=== PATIENT | male | born 1955 | race Caucasian/White ===

== ENCOUNTER 2017-07-15 10:06 | Inpatient (IN) | payer OTHER ==
[~2017-07-15] VITALS: Ht 167.6 cm; Wt 48.5 kg
[~2017-07-15 10:06] MED LIST: BENTYL20 MG PO
--- NOTE | 2017-07-15 10:38 | ED DYSPNEA/ASTHMA COMPLAINT ---
History of Present Illness General Chief Complaint: Dyspnea (COPD, CHF, Other) Stated Complaint: BIBA, SOB Source: patient, family, old records, EMS Exam Limitations: no limitations, poor historian Vital Signs & Intake/Output Vital Signs & Intake/Output Vital Signs Date Time Temp Pulse Resp B/P B/P Pulse O2 O2 Flow FiO2 Mean Ox Delivery Rate 07/15 1030 96 Room Air 07/15 1010 97.5 86 18 132/85 98 Room Air Allergies Coded Allergies: NO KNOWN ALLERGIES (02/03/14) Reconcile Medications Dicyclomine Hydrochloride (Bentyl) 20 MG TAB 1 TAB PO 4 TIMES/DAY PRN abd pain Triage Note: 61 Y/O MALE LA FROM HOME FOR EVAL OF GENERAL SICK CALL. PER EMS, PT WENT TO WORK THIS MORNING BUT WAS SENT HOME DUE TO NOT FEELING WELL; SISTER THAN CALLED EMS TO GET PT AT HOME. EMS REPORTS PT HOME WAS UNKEMPT WITH "MOLD IN REFRIGERTOR". PT ADMITTED TO EMS THAT HE HAS BEEN FEELING SOB FOR A WHILE. +COUGHING WITH "OCCASIONAL GREEN PHLEGM". PT ARRIVES ALERT/ORIENTED, SPEAKING CLEARLY WITH NO DISTRESS NOTED. PT REPORTS EATING/DRINKING "WELL". DENIES PAIN. ADMITS TO RECENT FALL BUT UNABLE TO DESCRIBE DETAILS OF FALL. PT CACHETIC IN APPERANCE WITH RIBS SHOWING. SKIN PALE/COOL. MD ECHEVARRIA AT THE BEDSIDE Triage Nurses Notes Reviewed? yes Onset: Just prior to arrival Duration: day(s):, constant, continues in ED, getting worse Timing: recent history Severity: severe Activities at Onset: rest Prior Episodes/Possible Cause: illness exposure Modifying Factors: Improves With: rest. Worsens With: movement. Associated Symptoms: cough, loss of appetite, weakness HPI: 1 week prior to admission the patient's spouse . He complains of not feeling well with weakness anorexia productive cough of green sputum several days prior to admission while staying at his mother's home. He has had issues with anorexia nausea and vomiting having a recent swallow study that was normal. There's been no fever chills diarrhea abdominal pain chest pain shortness of breath headache dysuria rash bleeding. Past History Travel History Traveled to [place] past 21 day No Medical History Any Pertinent Medical History? 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 No Review of Systems Review of Systems Constitutional: Reports: see HPI, malaise, weakness. EENTM: Reports: no symptoms. Respiratory: Reports: see HPI, cough, sputum production. Cardiovascular: Reports: no symptoms. GI: Reports: see HPI, nausea, vomiting. Genitourinary: Reports: no symptoms. Musculoskeletal: Reports: no symptoms. Skin: Reports: no symptoms. Neurological/Psychological: Reports: no symptoms. Hematologic/Endocrine: Reports: no symptoms. Immunologic/Allergic: Reports: no symptoms. All Other Systems: Reviewed and Negative Physical Exam Physical Exam General Appearance: well developed/nourished, alert, awake, anxious, mild distress, thin (cachectic) Head: atraumatic Eyes: Bilateral: normal appearance, PERRL, EOMI. Ears, Nose, Throat: normal pharynx, dry mucous membranes Neck: normal inspection, supple, full range of motion, no midline tenderness Respiratory: chest non-tender, no respiratory distress, quiet respiration, rhonchi Cardiovascular: regular rate/rhythm, normal peripheral pulses, norml femoral pulses equa Peripheral Pulses: 4+ carotid (R), 4+ carotid (L) Gastrointestinal: normal bowel sounds, soft, non-tender, no organomegaly Extremities: normal inspection, normal capillary refill, normal range of motion, no edema Neurologic/Psych: no motor/sensory deficits, awake, alert, oriented x 3, normal mood/affect, trim carpenter II-XII nml as tested Skin: intact, normal color, warm/dry Lymphatic: no anterior cervical cristobal Core Measures ACS in differential dx? No CVA/TIA Diagnosis No Sepsis Present: No Sepsis Focused Exam Completed? No Progress Differential Diagnosis: bronchitis, CHF, COPD, pneumonia Plan of Care: Orders Procedure Date/time Status CBC WITHOUT DIFFERENTIAL 07/16 599 Active BASIC ELECTROLYTES PLUS BUN&CR 07/16 06 Active Regular Diet 07/15 L Active Add-on Test (ER Only) 07/15 1326 Active Pathway - chart 07/15 1259 Active House Staff 07/15 1259 Active Patient Data 07/15 1229 Active CULTURE,URINE 07/15 1209 Active OXYGEN SETUP (GEN) 07/15 115 Active Saline Lock 07/15 115 Active Admit to inpatient 07/15 1155 Active Vital Signs 07/15 115 Active Activity/Ambulation 07/15 115 Active BLOOD CULTURE 07/15 115 Active Code Status 07/15 115 Active URINALYSIS 07/15 1135 Complete TSH REFLEX 07/15 1033 Complete TROPONIN LEVEL 07/15 1033 Complete MAGNESIUM 07/15 1033 Complete LIPASE 07/15 1033 Complete COMPREHENSIVE METABOLIC PANEL 07/15 1033 Complete CBC WITHOUT DIFFERENTIAL 07/15 1033 Complete Intake & Output 07/15 1018 Active EKG 07/15 1008 Active VTE Mechanical Prophylaxis 07/15 UNK Active Current Medications Sig/Samantha Start time Last Medication Dose Stop Time Status Admin Heparin Sodium 5,000 UNIT Q8 07/15 1400 UNVr (Porcine) Laboratory Tests 07/15/17 1205: Urinalysis HEAVY H, Urine Color YEL, Urine Clarity HAZY H, Urine pH 6.5, Ur Specific [place] 1.015, Urine Protein NEG, Urine Ketones NEG, Urine Nitrite NEG, Urine Bilirubin NEG, Urine Urobilinogen 0.2, Ur Leukocyte Esterase NEG, Ur Microscopic SEDIMENT EXAMINED, Urine WBC 10-15 H, Ur Epithelial Cells FEW, Urine Mucus MOD H, Urine Hemoglobin TRACE-INTACT H, Urine Glucose NEG 07/15/17 1113: Anion Gap 11, Estimated GFR > 60, BUN/Creatinine Ratio 24.3, Glucose 84, Calcium 9.1, Magnesium 2.0, Total Bilirubin 0.7, AST 29, ALT 31, Alkaline Phosphatase 94 , Troponin I < 0.01, Total Protein 8.4 H, Albumin 3.8, Globulin 4.6 H, Albumin /Globulin Ratio 0.8 L, Lipase 217, TSH &T3 &Free T4 Intrp 2.680, CBC w Diff NO MAN DIFF REQ, RBC 5.20, MCV 90.7, MCH 30.1, MCHC 33.2, RDW 15.5 H, MPV 7.4, Gran % 78.3 H, Lymphocytes % 4.7 L, Monocytes % 10.2 H, Eosinophils % 6.6 H, Basophils % 0.2, Absolute Granulocytes 8.6 H, Absolute Lymphocytes 0.5 L, Absolute Monocytes 1.1 H, Absolute Eosinophils 0.7, Absolute Basophils 0 Microbiology 07/15 1250 BLOOD: Blood Culture - RECD 07/15 1209 URINE ROUT: Urine Culture - RECD 07/15 1155 BLOOD: Blood Culture - ORD Diagnostic Imaging: Viewed by Me: Radiology Read. Discussed w/RAD: Radiology Read. CXR Impression: 1. There has been interval increase in the opacification in the upper zones bilaterally with volume loss and elevation of the deirdre bilaterally. These changes appear more severe on the right with right apical pleural thickening. The findings are consistent with worsening sarcoidosis, although underlying consolidation and/or mass cannot be excluded. Initial ED EKG: normal p-waves, normal sinus rhythm, RBBB, no ST T wave changes Prior EKG: changed Rhythm Strip: normal sinus rhythm Departure Departure Time of Disposition: 1100 Disposition: STILL A PATIENT Condition: Stable Clinical Impression Primary Impression: Pneumonia Referrals: Harleen Ny APRN (PCP/Family) Departure Forms: Customer Survey General Discharge Information Admission Note Spoke With: Edilson LANDAVERDE,Sanjay Documentation of Exam: Documentation of any treatments & extenuating circumstances including Concerns Regarding Discharge (functional status, medication knowledge or non-compliance, living conditions, etc.) that warrant an admission rather than observation: Follow cultures IV antibiotics rheumatology evaluation pulmonary evaluation physical therapy nutrition evaluation medication adjustment continuing care discharge planning Critical Care Note Critical Care Note Critical Care Time: non-applicable
[2017-07-15 11:24] LABS: ABSOLUTE BASOPHIL COUNT 0 /CUMM (0.0-0.2); ABSOLUTE EOSINOPHIL COUNT 0.7 /CUMM (0.0-0.7); ABSOLUTE GRANULOCYTE CT 8.6 /CUMM (1.4-6.5); ABSOLUTE LYMPH COUNT 0.5 /CUMM (1.2-3.4); ABSOLUTE MONOCYTE COUNT 1.1 /CUMM (0.10-0.60); BASOPHIL % 0.2 % (0.0-2.0); EOSINOPHIL % 6.6 % (0-5); GRANULOCYTE % 78.3 % (42.2-75.2); HEMATOCRIT 47.2 % (42-52); MEAN CORPUSCULAR HGB 30.1 PG (27.0-31.0); MEAN CORPUSCULAR HGB CONC 33.2 G/DL (33.0-37.0); MEAN CORPUSCULAR VOLUME 90.7 FL (80.0-94.0); MEAN PLATELET VOLUME 7.4 FL (7.4-10.4); PLATELET COUNT 446 /CUMM (130-400); RBC DISTRIBUTION WIDTH 15.5 % (11.5-14.5)
--- NOTE | 2017-07-15 11:36 | RADIOLOGY REPORT ---
EXAMINATION: XR CHEST CLINICAL INFORMATION: Productive cough and weakness. History of sarcoidosis on prior x-ray reports. COMPARISON: CT scan of the chest 12/21/2016. Chest x-rays 06/23/2013 and 12/19/2012. TECHNIQUE: Frontal and lateral views of the chest were obtained. FINDINGS: The lung burgess are hyperexpanded bilaterally. There has been interval increase in opacification in the upper lung zones bilaterally with multiple coalescing opacities and pleural thickening at the right lung apex. There is volume loss in the upper lobes bilaterally with elevation of the deirdre on the left and right. The heart is normal in size. There are no pleural effusions. The study redemonstrates a levoscoliosis in the mid and lower thoracic spine, and there are multilevel degenerative changes in the thoracic spine. IMPRESSION: 1. There has been interval increase in the opacification in the upper zones bilaterally with volume loss and elevation of the deirdre bilaterally. These changes appear more severe on the right with right apical pleural thickening. The findings are consistent with worsening sarcoidosis, although underlying consolidation and/or mass cannot be excluded.
--- NOTE | 2017-07-15 12:58 | History & Physical ---
Ul Marta LANDAVERDE,[facility] 07/15/17 1258: General Information and HPI MD Statement: I have seen and personally examined WERNER LERNER and documented this H&P. The patient is a 61 year old M who presented with a patient stated chief complaint of [weakness and productive cough]. Source of Information: patient Exam Limitations: clinical condition History of Present Illness: 61-year-old male with past medical history significant for lung nodules, ex- smoker, brought in by ambulance from home to emergency department for not feeling well and productive cough. According to the patient, his 1 week ago. For the last 1 week he has not been feeling well. He feels weak and also started experiencing cough which was productive in nature with greenish sputum production. He went to work this morning and was sent back home. As per the report from emergency department, EMS reported that patient's home was unkempt with morbid in the refrigerator. EMS also reported that patient admitted to feeling short of breath along with cough and occasional green phlegm. Review of system positive for significant weight gain in the last 1 year. According to patient's sister who was present during that encounter she mentioned that patient has lost around 40 pounds in the last 1 year. He also has some difficulty while eating. She frequently throws up. He was taking care of his sick in the last 6 months. She a week ago. As per the sister patient's house is really unkempt and there is mold growing everywhere. Review of systems negative for headaches, acute change in vision, acute shortness of breath, nausea, vomiting, abdominal pain, dysuria, or lower extremity edema. 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 Denies: fever. Cardiovascular: Denies: chest pain. Respiratory: Reports: cough, short of breath. GI: Denies: constipation, diarrhea. Genitourinary: Denies: dysuria. Musculoskeletal: Denies: back pain. All Other Systems: Reviewed and Negative Exam & Diagnostic Data Last 24 Hrs of Vital Signs/I&O Vital Signs Date Time Temp Pulse Resp B/P B/P Pulse O2 O2 Flow FiO2 Mean Ox Delivery Rate 07/15 1030 96 Room Air 07/15 1010 97.5 86 18 132/85 98 Room Air Intake & Output 07/15 1600 07/15 0800 07/15 0000 Intake Total 1000 Output Total Balance 1000 Intake, IV 1000 Patient 121 lb Weight Weight Reported by Patient Measurement Method Physical Exam General Appearance Alert, Oriented X3, Cooperative HEENT Atraumatic Neck No JVD Cardiovascular Regular Rate, Normal S1, Normal S2, No Murmurs Lungs Clear to Auscultation Abdomen Normal Bowel Sounds, Soft, No Tenderness Neurological Normal Speech, Normal Tone, Sensation Intact Extremities No Cyanosis, No Edema Vascular Normal Pulses Last 24 Hrs of Labs/Hawk: Laboratory Tests 07/15/17 1205: Urinalysis HEAVY H, Urine Color YEL, Urine Clarity HAZY H, Urine pH 6.5, Ur Specific [place] 1.015, Urine Protein NEG, Urine Ketones NEG, Urine Nitrite NEG, Urine Bilirubin NEG, Urine Urobilinogen 0.2, Ur Leukocyte Esterase NEG, Ur Microscopic SEDIMENT EXAMINED, Urine WBC 10-15 H, Ur Epithelial Cells FEW, Urine Mucus MOD H, Urine Hemoglobin TRACE-INTACT H, Urine Glucose NEG 07/15/17 1113: Anion Gap 11, Estimated GFR > 60, BUN/Creatinine Ratio 24.3, Glucose 84, Calcium 9.1, Magnesium 2.0, Total Bilirubin 0.7, AST 29, ALT 31, Alkaline Phosphatase 94 , Troponin I < 0.01, Total Protein 8.4 H, Albumin 3.8, Globulin 4.6 H, Albumin /Globulin Ratio 0.8 L, Lipase 217, TSH &T3 &Free T4 Intrp 2.680, CBC w Diff NO MAN DIFF REQ, RBC 5.20, MCV 90.7, MCH 30.1, MCHC 33.2, RDW 15.5 H, MPV 7.4, Gran % 78.3 H, Lymphocytes % 4.7 L, Monocytes % 10.2 H, Eosinophils % 6.6 H, Basophils % 0.2, Absolute Granulocytes 8.6 H, Absolute Lymphocytes 0.5 L, Absolute Monocytes 1.1 H, Absolute Eosinophils 0.7, Absolute Basophils 0 Microbiology 07/15 1250 BLOOD: Blood Culture - RECD 07/15 1155 BLOOD: Blood Culture - ORD Diagnostic Data EKG Results Normal sinus rhythm, no ST to T wave changes, CXR Results There has been interval increase in the opacification in the upper zones bilaterally with volume loss and elevation of the deirdre bilaterally. These changes appear more severe on the right with right apical pleural thickening. The findings are consistent with worsening sarcoidosis, although underlying consolidation and/or mass cannot be excluded. Assessment/Plan Assessment: 61-year-old male with past medical history significant for lung nodules, ex- smoker, brought in by ambulance from home to emergency department for not feeling well and productive cough. Vitals in emergency department patient afebrile, no tachycardia on examination, no tachypnea, blood pressure 132/85, oxygen saturation of 96-98% on room air. Labs significant for leukocytosis 11, and mild left shift, platelet count 446, normal hemoglobin and hematocrit, mild hyponatremia, chloride 94, carbon dioxide 32, urine showed 10-50 WBCs Patient was admitted on general medicine so for the management of following problems #1 Dehydration/leukocytosis #2 Malnutrition #3 Pyuria #4 ? Cavitary lung lesions in the past and significant weight loss #5 dysphagia Patient does not have significant evidence of infection. He did have some productive cough recently but denied any fevers or chills. Chest x-ray did not show any overwhelming evidence of pneumonia. He is not requiring any additional oxygen. His examination was significant for some rales. According to patient's sister he has lost around 40 pounds in the last 1 year. 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 He is not eating a lot and throws up most of the time after eating. Modified barium swallow was done on 07/10/2017 that showed Mild pooling of contrast in the valleculae. No aspiration. Speech pathologist assessment issued separately. Due to patient's recent significant weight gain, history of cavitary lesions in the previous CAT scan, and hoarding along with unkempt conditions at home, we would like to rule out TB. Pulmonology consult was placed. Patient was put on airborne precautions. Patient has mild pyuria. The date for urine culture he does not have any symptoms. We'll hold off on antibiotics. Patient is on heparin for DVT prophylaxis Patient is full code Patient is on regular diet As Ranked By This Provider Problem List: 1. Pneumonia 2. Lung nodule, multiple Core Measures/Misc (12/23) Acute Coronary Syndrome ACS Diagnosis: No Congestive Heart Failure Congestive Heart Failure Diagnosis No Cerebrovascular Accident CVA/TIA Diagnosis: No VTE (View Protocol) VTE Risk Factors Acute Medical Illness No Mechanical VTE Prophylaxis d/t N/A MechProphylax Ordered No VTE Pharm Prophylaxis d/t NA PharmProphylax ordered Sepsis (View protocol) Sepsis Present: No Carlos Colby MD 07/16/17 0552: Attending MD Review Statement Attending Statement Attending MD Statement: examined this patient, discuss w/resident/PA/MULTIFOCAL BUTTON GENERATOR, agreed w/resident/PA/MULTIFOCAL BUTTON GENERATOR, reviewed EMR data (avail), reviewed images, amended to note Attending Assessment/Plan: The patient is a 61 yo male with h/o pulmonary nodules who was brought from home to [place] ED via ambulance when he was found by POA in his home with severe weakness, cough productive of green sputum, and dyspnea. His had 1 week prior and he had been living in suboptimal environment with mold noted to be growing in home. He denied any fever, chills, chest pain or abdominal pain. Noted diminished appetite and had had significant weight loss of 50 lbs. CXR showed possible upper lobe opacifications. He was noted to be vomiting after meals. Physical Exam: VS: T 97.5, P 86, R 18, BP 132/84, PO 96% RA HEENT: eyes- PERRLA, EOMI mateus- dry mucosa Neck: no JVD/bruits Chest: slightly diminished breath sounds, clear Cor: RRR nl S1, S2 w/o murm Abd: BS+, soft, NT, - HSM Ext: no edema, pulses 1+ Neuro: CODY, alert, depressed, non-focal exam, gait not tested Labs/Tests- as above Impression/Plan: #Cavitary Pulmonary Lesions- noted on prior CT. Does have some green sputum and productive cough with leukocytosis, however no fever or chills. Possible etiologies include pneumonia. Tuberculosis is in differential here. Does have h/ o pulmonary nodules noted and was followed by pulmonary (Dr. Ambrose). Did receive Ceftriaxone/Zithromax/Medrol in ED. Plan: Admit to general medicine for evaluation. Pulmonary Consult- Dr. Ambrose. Respiratory Isolation with negative pressure room until TB excluded. AFB smears/sputum gram stain & culture, etc. Await pulmonary input prior to further antibiotics. #Weight Loss/Cachexia/Malnutrition- patient with 50 Lb weight loss. Plan: Check nutritional parameters, dietary consult. #Pyuria- no urinary symptoms. Plan: Check urine culture. #Depression- recent of . Patient is not suicidal. Plan: Psych and social service consultations. #Dysphagia- noted as above. Plan: Speech Therapy evaluation for swallow.
--- NOTE | 2017-07-15 18:11 | History & Physical ---
General Information and HPI Source of Information: patient Exam Limitations: clinical condition Allergies/Medications Allergies: Coded Allergies: NO KNOWN ALLERGIES (02/03/14) Home Med list No Known Home Medications Compliance With Home Meds: GOOD Past History Travel History Traveled to [place] past 21 day No Medical History Neurological: NONE EENT: NONE Cardiovascular: NONE Respiratory: LUNG NODULES PER PT Gastrointestinal: NONE Hepatic: NONE Renal: NONE Musculoskeletal: NONE Psychiatric: NONE Endocrine: NONE Blood Disorders: NONE Cancer(s): NONE EM PHYSICIAN/Reproductive: NONE Isolation History: Airborne Surgical History Surgical History: non-contributory Exam & Diagnostic Data Diagnostic Data EKG Results Normal sinus rhythm, no ST to T wave changes, CXR Results There has been interval increase in the opacification in the upper zones bilaterally with volume loss and elevation of the deirdre bilaterally. These changes appear more severe on the right with right apical pleural thickening. The findings are consistent with worsening sarcoidosis, although underlying consolidation and/or mass cannot be excluded.
[2017-07-15 19:56] VITALS: BP 96/60
[2017-07-15 22:28] VITALS: BP 98/60
[2017-07-15 23:57] VITALS: BP 98/60
[2017-07-16 06:52] VITALS: BP 102/64
[2017-07-16 08:27] LABS: ABSOLUTE BASOPHIL COUNT 0 /CUMM (0.0-0.2); ABSOLUTE EOSINOPHIL COUNT 0.1 /CUMM (0.0-0.7); ABSOLUTE GRANULOCYTE CT 9.4 /CUMM (1.4-6.5); ABSOLUTE LYMPH COUNT 1.2 /CUMM (1.2-3.4); ABSOLUTE MONOCYTE COUNT 1.6 /CUMM (0.10-0.60); BASOPHIL % 0.3 % (0.0-2.0); GRANULOCYTE % 76.2 % (42.2-75.2); HEMATOCRIT 42.8 % (42-52); MEAN CORPUSCULAR HGB 30.5 PG (27.0-31.0); MEAN CORPUSCULAR HGB CONC 33.5 G/DL (33.0-37.0); MEAN CORPUSCULAR VOLUME 90.9 FL (80.0-94.0); MEAN PLATELET VOLUME 7.9 FL (7.4-10.4); PLATELET COUNT 441 /CUMM (130-400); RBC DISTRIBUTION WIDTH 15.8 % (11.5-14.5); RED BLOOD CELL CT 4.71 /CUMM (4.70-6.10); WHITE BLOOD CELL COUNT 12.3 /CUMM (4.8-10.8)
--- NOTE | 2017-07-16 08:36 | Cons- Pulmonary ---
General Information and HPI Consulting Request Date of Consult: 07/16/17 Requested By: Philippe Reason for Consult: Abnormal chest x-ray History of Present Illness: Patient is 61-year-old who was initially seen in May for abnormal CAT scan 6 years ago. Barium swallow had been done because of dysphagia which showed wide-open gastroesophageal reflux paraesophageal hernia and poor esophageal motility he's had a chronic cough associated with swallowing both liquids and solid foods well a upper lobe biopsy was done which showed nonnecrotizing granulomas fungal next visit studies were negative normal over the past 6 years she's had persistent cough and was recently CAT scan showed marked progression of previously noted nodules with cystic vibration bronchiectasis and fibrosisthere was no adenopathy continues to have cough associated with swallowing both liquids and solids recent barium swallow continue to show evidence of digital fluid in the valleculae but no aspiration at this time. He was admitted with increasing cough now productive of discolored sputum without hemoptysis. He's had significant weight loss Allergies/Medications Allergies: Coded Allergies: NO KNOWN ALLERGIES (02/03/14) Home Med List: No Known Home Medications Review of Systems Review of Systems Constitutional: Reports: weakness. Denies: chills, fever. Cardiovascular: Denies: chest pain. Respiratory: Reports: cough, short of breath, sputum production. Denies: hemoptysis. GI: Denies: abdominal pain, diarrhea, melena (dysphasia). 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 Home Services at Home: None Smoking Status: Former Smoker Exam & Diagnostic Data Last 24 Hrs of Vital Signs/I&O Vital Signs Date Time Temp Pulse Resp B/P B/P Pulse O2 O2 Flow FiO2 Mean Ox Delivery Rate 07/16 0652 97.8 80 22 102/64 98 Room Air 07/16 0000 Room Air 07/15 2357 93 98/60 07/15 2228 96.7 110 20 98/60 95 Room Air 07/15 1956 97.3 102 18 96/60 95 Room Air 07/15 1821 97.8 84 18 128/80 97 Room Air Room Air 07/15 1700 97.2 80 18 124/80 97 Room Air Room Air 07/15 1355 97.4 92 18 126/83 98 Room Air 07/15 1030 96 Room Air 07/15 1010 97.5 86 18 132/85 98 Room Air Intake & Output 07/16 1600 07/16 0800 04 0000 Intake Total 180 540 Output Total 500 600 Balance -320 -60 Intake, Oral 180 540 Number 1 Bowel Movements Output, Urine 500 600 Patient 107 lb Weight Weight Bed scale Measurement Method Patient appears cachectic room air oxygen saturation normal HEENT exam shows no adenopathy exam of his chest shows occasional crackles there are no wheezes cardiac exam shows regular S1 and S2 without murmurs abdomen is soft nontender there's no edema Last 48 Hrs of Labs/Hawk: Laboratory Tests 07/16/17 0758: Sodium Pending, Potassium Pending, Chloride Pending, Carbon Dioxide Pending, Anion Gap Pending, BUN Pending, Creatinine Pending, BUN/Creatinine Ratio Pending , CBC w Diff Pending, WBC Pending, RBC Pending, Hgb Pending, Hct Pending, MCV Pending, MCH Pending, MCHC Pending, RDW Pending, Plt Count Pending, MPV Pending 07/15/17 1205: Urinalysis HEAVY H, Urine Color YEL, Urine Clarity HAZY H, Urine pH 6.5, Ur Specific [place] 1.015, Urine Protein NEG, Urine Ketones NEG, Urine Nitrite NEG, Urine Bilirubin NEG, Urine Urobilinogen 0.2, Ur Leukocyte Esterase NEG, Ur Microscopic SEDIMENT EXAMINED, Urine WBC 10-15 H, Ur Epithelial Cells FEW, Urine Mucus MOD H, Urine Hemoglobin TRACE-INTACT H, Urine Glucose NEG 07/15/17 1113: Anion Gap 11, Estimated GFR > 60, BUN/Creatinine Ratio 24.3, Glucose 84, Calcium 9.1, Phosphorus 3.8, Magnesium 2.0, Total Bilirubin 0.7, AST 29, ALT 31, Alkaline Phosphatase 94, Troponin I < 0.01, Total Protein 8.4 H, Albumin 3.8, Globulin 4.6 H, Albumin/Globulin Ratio 0.8 L, Lipase 217, Vitamin B12 854, 25- [place] Vitamin D Total Pending, TSH &T3 &Free T4 Intrp 2.680, CBC w Diff NO MAN DIFF REQ, RBC 5.20, MCV 90.7, MCH 30.1, MCHC 33.2, RDW 15.5 H, MPV 7.4, Gran % 78.3 H, Lymphocytes % 4.7 L, Monocytes % 10.2 H, Eosinophils % 6.6 H, Basophils % 0.2, Absolute Granulocytes 8.6 H, Absolute Lymphocytes 0.5 L, Absolute Monocytes 1.1 H, Absolute Eosinophils 0.7, Absolute Basophils 0 Microbiology 07/15 1421 NASOPHARYN: Influenza Virus A & B Rapid Smear - COMP Assessment/Plan Impression/Plan: 61-year-old gentleman who is had a chronically abnormal CAT scan dating back to 2008 who shows progression of fibrosis bronchiectasis and cyst formation a biopsy in 2011 showed evidence of noncaseating granulomas with negative fungal or TB stains. Concern is raised over possible persistent aspiration, chronic hypersensitivity lung disease in view of increased eosinophilia for sarcoid though Kaushik levels and absence of adenopathy make this unusual though this could be burned out sarcoid, with acute symptoms this could represent superinfection with Aspergillus and concern over tuberculosis has been raised because of weight loss Recommendations: GI evaluation because of persistent dysphagia. Obtain QuantiFERON Gold. Sputum C&S for routine fungus and AFB. Repeat noncontrast CT scan of the chest. Repeat angiotensin-converting enzyme Consult Acknowledgment - Thank you for your consult request.
--- NOTE | 2017-07-16 08:55 | PN- Housestaff ---
Suresh Lozano MD,Rene 07/16/17 0854: Subjective Follow-up For: Dehydration/leukocytosis Malnutrition Pyuria ?Cavitary lung lesions in the past and significant weight loss dysphagia Complaints: GERD Subjective: Patient is currently on air-bone precautions secondary to presumed TB. Patient was comfortably lying in the bed. He was complaining of symptoms of heartburn overnight. He did not have an acute episode of chest pain or shortness of breath. Review of Systems Constitutional: Denies: chills, fever. Cardiovascular: Denies: chest pain, palpitations. Respiratory: Denies: cough. Gastrointestinal: Denies: abdominal pain, nausea, vomiting. Genitourinary: Denies: dysuria. Musculoskeletal: Denies: back pain. Objective Last 24 Hrs of Vital Signs/I&O Vital Signs Date Time Temp Pulse Resp B/P B/P Pulse O2 O2 Flow FiO2 Mean Ox Delivery Rate 07/16 0652 97.8 80 22 102/64 98 Room Air 07/16 0000 Room Air 07/15 2357 93 98/60 07/15 2228 96.7 110 20 98/60 95 Room Air 07/15 1956 97.3 102 18 96/60 95 Room Air 07/15 1821 97.8 84 18 128/80 97 Room Air Room Air 07/15 1700 97.2 80 18 124/80 97 Room Air Room Air 07/15 1355 97.4 92 18 126/83 98 Room Air 07/15 1030 96 Room Air 07/15 1010 97.5 86 18 132/85 98 Room Air Intake & Output 07/16 1600 07/16 0800 07/16 0000 Intake Total 180 540 Output Total 500 600 Balance -320 -60 Intake, Oral 180 540 Number 1 Bowel Movements Output, Urine 500 600 Patient 107 lb Weight Weight Bed scale Measurement Method Physical Exam General Appearance: Alert, Oriented X3, Cooperative, No Acute Distress HEENT: Atraumatic Neck: No JVD Cardiovascular: Regular Rate, Normal S1, Normal S2 Lungs: Clear to Auscultation Abdomen: Normal Bowel Sounds, Soft, No Tenderness Neurological: Normal Speech, Normal Tone, Sensation Intact Extremities: No Edema Current Medications: Current Medications Sig/Samantha Start time Last Medication Dose Route Stop Time Status Admin Azithromycin 500 MG ONCE ONE 07/15 1200 DC 07/15 Dextrose/Water 250 ML IV 07/15 1259 1354 Ceftriaxone Sodium 0 .STK-MED ONE 07/15 1228 DC .ROUTE Ceftriaxone Sodium 1,000 MG ONCE ONE 07/15 1200 DC 07/15 IV 07/15 1201 1253 Heparin Sodium 5,000 UNIT Q8 07/15 1400 AC 07/16 (Porcine) SC 0629 Heparin Sodium 0 .STK-MED ONE 07/15 1345 DC (Porcine) .ROUTE Methylprednisolone 0 .STK-MED ONE 07/15 1228 DC .ROUTE Methylprednisolone 125 MG ONCE ONE 07/15 1200 DC 07/15 IV 07/15 1201 1229 Omeprazole 40 MG DAILY AC 07/16 0829 AC PO Sodium Chloride 1,000 ML BOLUS ONE 07/15 1045 DC 07/15 IV 07/15 1144 1120 Last 24 Hrs of Lab/Hawk Results Last 24 Hrs of Labs/Mics: Laboratory Tests 07/16/17 0758: Anion Gap 10, Estimated GFR > 60, BUN/Creatinine Ratio 23.3, CBC w Diff NO MAN DIFF REQ, RBC 4.71, MCV 90.9, MCH 30.5, MCHC 33.5, RDW 15.8 H, MPV 7.9, Gran % 76.2 H, Lymphocytes % 9.4 L, Monocytes % 13.1 H, Eosinophils % 1.0, Basophils % 0.3, Absolute Granulocytes 9.4 H, Absolute Lymphocytes 1.2, Absolute Monocytes 1.6 H, Absolute Eosinophils 0.1, Absolute Basophils 0 07/15/17 1205: Urinalysis HEAVY H, Urine Color YEL, Urine Clarity HAZY H, Urine pH 6.5, Ur Specific [place] 1.015, Urine Protein NEG, Urine Ketones NEG, Urine Nitrite NEG, Urine Bilirubin NEG, Urine Urobilinogen 0.2, Ur Leukocyte Esterase NEG, Ur Microscopic SEDIMENT EXAMINED, Urine WBC 10-15 H, Ur Epithelial Cells FEW, Urine Mucus MOD H, Urine Hemoglobin TRACE-INTACT H, Urine Glucose NEG 07/15/17 1113: Anion Gap 11, Estimated GFR > 60, BUN/Creatinine Ratio 24.3, Glucose 84, Calcium 9.1, Phosphorus 3.8, Magnesium 2.0, Total Bilirubin 0.7, AST 29, ALT 31, Alkaline Phosphatase 94, Troponin I < 0.01, Total Protein 8.4 H, Albumin 3.8, Globulin 4.6 H, Albumin/Globulin Ratio 0.8 L, Lipase 217, Vitamin B12 854, 25- OH Vitamin D Total Pending, TSH &T3 &Free T4 Intrp 2.680, CBC w Diff NO MAN DIFF REQ, RBC 5.20, MCV 90.7, MCH 30.1, MCHC 33.2, RDW 15.5 H, MPV 7.4, Gran % 78.3 H, Lymphocytes % 4.7 L, Monocytes % 10.2 H, Eosinophils % 6.6 H, Basophils % 0.2, Absolute Granulocytes 8.6 H, Absolute Lymphocytes 0.5 L, Absolute Monocytes 1.1 H, Absolute Eosinophils 0.7, Absolute Basophils 0 Microbiology 07/16 0500 LOWER RESP: AFB Culture with PCR Identification - COLB 07/16 050 LOWER RESP: AFB Culture with PCR Identification - COLB 07/16 0500 LOWER RESP: AFB Smear Concentration - COLB 07/15 1421 NASOPHARYN: Influenza Virus A & B Rapid Smear - COMP 07/15 1350 URINE ROUT: Legionella Antigen - COLB 07/15 1350 URINE ROUT: Streptococcus pneumoniae Antigen (M - COLB 07/15 1350 LOWER RESP: Respiratory Culture - COLB 07/15 1350 LOWER RESP: Gram Stain - COLB 07/15 1250 BLOOD: Blood Culture - RECD 07/15 1209 URINE ROUT: Urine Culture - RES 07/15 1155 BLOOD: Blood Culture - CAN Cancelled: SPECIMEN NEVER RECEIVED. REORDER IF NEEDED Lines/Diet/Fluids Fluids/Infusions: none Restraints: none Assessment/Plan Assessment: 61-year-old male with past medical history significant for lung nodules, ex- smoker, brought in by ambulance from home to emergency department for not feeling well and productive cough. Vitals in emergency department patient afebrile, no tachycardia on examination, no tachypnea, blood pressure 132/85, oxygen saturation of 96-98% on room air. Labs significant for leukocytosis 11, and mild left shift, platelet count 446, normal hemoglobin and hematocrit, mild hyponatremia, chloride 94, carbon dioxide 32, urine showed 10-50 WBCs Patient was admitted on general medicine so for the management of following problems #1 Dehydration/leukocytosis #2 Malnutrition #3 Pyuria #4 ? Cavitary lung lesions in the past and significant weight loss #5 dysphagia Patient does not have significant evidence of infection. He did have some productive cough recently but denied any fevers or chills. Chest x-ray did not show any overwhelming evidence of pneumonia. He is not requiring any additional oxygen. His examination was significant for some rales. According to patient's sister he has lost around 40 pounds in the last 1 year. 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 He is not eating a lot and throws up most of the time after eating. Modified barium swallow was done on 07/10/2017 that showed Mild pooling of contrast in the valleculae. No aspiration. Will repeat this region evaluation and consult GI if needed but this workup can be done as an outpatient. Due to patient's recent significant weight LOSS, history of cavitary lesions in the previous CAT scan, and hoarding along with unkempt conditions at home, we would like to rule out TB. Fungal conditions can also be considered. Pulmonology consult was placed. Patient had a biopsy of lung in 2011 that showed noncaseating granulomas with negative fungal or TB stains. Patient was put on airborne precautions. AFB smears were ordered. We'll also obtain QuantiFERON Gold as per pulmonology. Recent x-ray also raise suspicion for sarcoidosis. Will obtain a CAT scan. Pulmonology recommended to obtain CASEY enzyme but in the recent literature utility of CASEY enzyme is questionable secondary to poor sensitivity and specificity. . Patient has mild pyuria. The date for urine culture he does not have any symptoms. We'll hold off on antibiotics. Patient is on SC heparin for DVT prophylaxis Patient is full code Patient is on regular diet Problem List: 1. Pneumonia 2. Lung nodule, multiple Pain Ratin Pain Location: na Pain Goal: Pain 4 or less Pain Plan: Continue current pain medications Tomorrow's Labs & Rationales: CBC to follow leukocytosis DVT/Prophylaxis: pharmacological Carlos Colby MD 07/16/17 1008: Attending MD Review Statement Attending Statement Attending MD Statement: examined this patient, discuss w/resident/PA/PULLING UNIT FLOORHAND, agreed w/resident/PA/PULLING UNIT FLOORHAND, reviewed EMR data (avail), discussed with nursing, discussed with case mgmt, reviewed images, amended to note Attending Assessment/Plan: The patient was seen and discussed with the resident. Appreciate Pulmonary evaluation. Await sputums, Quantiferon Gold, etc. Speech evaluation, PT, nutrition consult, psych consult regarding depression and social group worker consult. Patient continues to c/o weakness. Appears less depressed than yesterday.
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
[2017-07-16 14:23] VITALS: BP 100/60
--- NOTE | 2017-07-16 17:48 | Discharge Summary ---
Visit Information Visit Dates Admission Date: 07/15/17 Discharge Date: 07/19/17 Hospital Course Course Attending Physician: Carlos Colby MD Primary Care Physician: Harleen Ny APRN Consulting Request: 1 Consulting Specialty: Pulmonary Disease Consulting Request: 2 Consulting Specialty: Gastroenterology Consulting Request: 3 Consulting Specialty: Psychiatry Hospital Course: 61-year-old male with past medical history significant for lung nodules, ex- smoker, history of dysphagia, history of lung biopsy in 2011 showing evidence of necrotizing granulomas with negative fungal and TB stains, brought in by ambulance from home to emergency department for not feeling well and productive cough. EMS reported that patient's home was unkempt with significant mold around. Patient's sister also contributing to the history and mentioned that he has lost around 40 pounds in the last 1 year. He was taking care of his sick for the last 6 months she a week ago before this hospital admission. Vitals in emergency department patient afebrile, no tachycardia on examination, no tachypnea, blood pressure 132/85, oxygen saturation of 96-98% on room air. Labs significant for leukocytosis 11, and mild left shift, platelet count 446, normal hemoglobin and hematocrit, mild hyponatremia, chloride 94, carbon dioxide 32, urine showed 10-50 WBCs Patient was admitted on general medicine so for the management of following problems Leukocytosis/pyuria Patient did not have significant evidence of infection on examination. He did have some productive cough but did not develop high-grade fever or chills. Chest x-ray did not show any overwhelming evidence of pneumonia on admission. He was not requiring any additional oxygen. He was given antibiotics in emergency department but we held off on further antibiotics. Patient did have some pyuria but did not complain of dysuria and there was no growth from urine culture. Dysphagia/malnutrition According to patient's sister he has lost around 40 pounds in the last 1 year. He was not eating a lot and throwing up most of the time after eating as per the history. Modified barium swallow was done on 07/10/2017 that showed mild pooling of contrast in the valleculae. No aspiration. Patient was started on PPI secondary to his GERD-like symptoms. Patient needs significant workup including EGD to rule out any obstructive lesion or malignancy especially in the setting of significant weight loss. Nutrition consult was placed and he was started on Ensure supplements. He was also seen by GI and it was recommended thaty he has OP Esophagram, with both liquid barium as well as barium soaked bread, as well as esophageal motility study. ? Cavitary lung lesions in the past and significant weight loss Due to patient's recent significant weight loss, history of cavitary lesions in the previous CAT scan, and hoarding along with unkempt conditions at home, we pursued workup for TB. Pulmonology consult was placed. Patient had a biopsy of lung in 2011 that showed noncaseating granulomas with negative fungal or TB stains. Patient was put on airborne precautions. AFB smears were ordered. QuantiFERON Gold ordered as per pulmonologywhich were negative. Recent x-ray on admission also raised suspicion for sarcoidosis. CAT scan was ordered that showed progressive fibrosis, cavitation, bronchiectasis, groundglass opacities, bronchocentric nodules, in both lungs. Calcified lymph nodes in the mediastinum. Pulmonology recommended to obtain CASEY enzyme but in the recent literature utility of CASEY enzyme is questionable secondary to poor sensitivity and specificity. [facility] CASEY enzyme is still pending. We also sent for galactomannan assay and B- glucan, resultys of which are stil lpending. He will follow up [facility] his machinist outside Dr. Ambrose within a week of discharge. Depression and decrased appetite Patient was started on Mirtazepine 7.5mg at bedtime. 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 Patient was on SC heparin for DVT prophylaxis Patient was full code Patient was on regular diet Complications: None Allergies: Coded Allergies: NO KNOWN ALLERGIES (02/03/14) Significant Procedures: SERVICE DATE: 07/15/17 EXAM TYPE: RAD - XRY-CHEST XRAY, TWO VIEWS FINDINGS: The lung burgess are hyperexpanded bilaterally. There has been interval increase in opacification in the upper lung zones bilaterally with multiple coalescing opacities and pleural thickening at the right lung apex. There is volume loss in the upper lobes bilaterally with elevation of the deirdre on the left and right. The heart is normal in size. There are no pleural effusions. The study redemonstrates a levoscoliosis in the mid and lower thoracic spine, and there are multilevel degenerative changes in the thoracic spine. IMPRESSION: 1. There has been interval increase in the opacification in the upper zones bilaterally with volume loss and elevation of the deirdre bilaterally. These changes appear more severe on the right with right apical pleural thickening. The findings are consistent with worsening sarcoidosis, although underlying consolidation and/or mass cannot be excluded. SERVICE DATE: 07/16/17- EXAM TYPE: CAT - CT CHEST WO IV CONTRAST FINDINGS: TELESALES SPECIALIST: Diffuse fibrotic lung disease. LUNGS: The confluent irregular thick-walled cavities in the apical segment of the right upper lobe persist and have thicker arguello. There is adjacent bronchiectasis and retraction of the hilum. There is increasing peripheral consolidation, fibrosis, and bronchiectasis involving the anterior segment of the right upper lobe. There is increasing consolidation and bronchiectasis with enlarging cavitation involving the superior segment of the left lower lobe. Widespread groundglass opacities persist throughout both lungs in a bronchocentric pattern. There is no significant improvement. The fibrosis and nodules along fissures are consistent with sarcoidosis. Conglomerate areas of irregular spiculated fibrosis is seen in both lower lobes. These have not changed significantly in size. MEDIASTINUM: The small mediastinal, pretracheal, and perihilar lymph nodes show calcification and granulomatous reaction. PLEURA: Pleural thickening is quite advanced in the right apex. AXILLA: No lymphadenopathy. The patient has become quite cachectic. UPPER ABDOMEN: Oral contrast is seen in the colon. No bulk adenopathy in the abdomen as visualized. OSSEOUS STRUCTURES: Unremarkable. IMPRESSION: Progressive fibrosis, cavitation, bronchiectasis, groundglass opacities, bronchocentric nodules, in both lungs. Calcified lymph nodes in the mediastinum. 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 Disposition Summary Disposition Principal Diagnosis: Dehydration/leukocytosis Dysphagia Depression ? Cavitary lung lesions in the past and significant weight loss Dysphagia Moderate calorie malnutrition Additional Diagnosis: History of lung nodules Discharge Disposition: SNF Discharge Instructions General Discharge Information Code Status: Full Code Patient's Diet: Regular diet Patient's Activity: As tolerated Follow-Up Instructions/Appts: Follow-up with PCP in a week after discharge Follow-up with freelance director in a week after discharge for OP barium studies and endoscopy Follow-up with machinist outside in a week after discharge Medications at Discharge Discharge Medications: Start taking the following new medications: Tamsulosin HCl (Flomax) 0.4 MG CAP.ER.24H 0.4 Milligram ORAL DAILY Qty = 60 No Refills Instructions: . Comments: LAST TAKEN: 07/19/17 @ 9 AM Codeine Phosphate/Guaifenesi (Guaifenesin AC Cough Syrup) 10 MG-100 MG/5 ML LIQUID 10 Milliliters ORAL EVERY SIX HOURS NEEDED as needed for COUGH Qty = 2 No Refills Instructions: . Comments: LAST TAKEN: 07/19/17 @ 12 PM Mirtazapine (Mirtazapine) 7.5 MG TABLET 7.5 Milligram ORAL AT BEDTIME Qty = 120 No Refills Instructions: . Comments: LAST TAKEN: 07/18/17 @ 9 PM Omeprazole (Omeprazole) 20 MG CAPSULE.DR 40 Milligram ORAL DAILY BEFORE BREAKFAST Qty = 30 No Refills Instructions: . Comments: LAST TAKEN: 07/19/17 @ 6 AM Cholecalciferol (Vitamin D3) 1,000 UNIT TABLET 1,000 International Unit ORAL DAILY Qty = 90 No Refills Instructions: . Comments: LAST TAKEN: 07/19/17 @ 10 AM Melatonin (Melatonin) 5 MG TABLET 5 Milligram ORAL AT BEDTIME as needed for INSOMNIA Qty = 90 No Refills Instructions: . Comments: LAST TAKEN: 07/18/17 @ 9 PM Copies To: Arnol LANDAVERDE,Joshua Monge; Harleen Ny APRN; Sylvester LANDAVERDE,Herbert Villa Attending MD Review Statement Documenting Attending: Carlos Colby MD Other Findings: The patient was seen and agree with the plan of care upon discharge.
[2017-07-16] MEDS ORDERED: VITAMIN D31000 UNI2 PO (18:11)
[2017-07-16] MEDS ORDERED: OMEPRAZOLE20 M2 PO (18:11)
[2017-07-16 22:08] VITALS: BP 118/60
--- NOTE | 2017-07-16 23:01 | CT SCAN REPORT ---
EXAMINATION: CT CHEST WITHOUT CONTRAST CLINICAL INFORMATION: Presumptive diagnosis: Cavitary lesion in the lung. Question tuberculosis. Weight loss and productive cough. Per chart: This patient has been followed since 04/13/2011. CT of the chest at that time showed characteristic nodules consistent with sarcoidosis. The hilar adenopathy and mediastinal adenopathy was not a major feature at that time. COMPARISON: CT the chest on 04/13/2011, CT the chest on 12/21/2016. TECHNIQUE: Multidetector volumetric CT imaging of the chest was done. Axial MIP volume rendering provided. Sagittal and coronal reformatted images were obtained. DLP: 144 mGy-cm FINDINGS: SENIOR MERCHANDISER: Diffuse fibrotic lung disease. LUNGS: The confluent irregular thick-walled cavities in the apical segment of the right upper lobe persist and have thicker arguello. There is adjacent bronchiectasis and retraction of the hilum. There is increasing peripheral consolidation, fibrosis, and bronchiectasis involving the anterior segment of the right upper lobe. There is increasing consolidation and bronchiectasis with enlarging cavitation involving the superior segment of the left lower lobe. Widespread groundglass opacities persist throughout both lungs in a bronchocentric pattern. There is no significant improvement. The fibrosis and nodules along fissures are consistent with sarcoidosis. Conglomerate areas of irregular spiculated fibrosis is seen in both lower lobes. These have not changed significantly in size. MEDIASTINUM: The small mediastinal, pretracheal, and perihilar lymph nodes show calcification and granulomatous reaction. PLEURA: Pleural thickening is quite advanced in the right apex. AXILLA: No lymphadenopathy. The patient has become quite cachectic. UPPER ABDOMEN: Oral contrast is seen in the colon. No bulk adenopathy in the abdomen as visualized. OSSEOUS STRUCTURES: Unremarkable. IMPRESSION: Progressive fibrosis, cavitation, bronchiectasis, groundglass opacities, bronchocentric nodules, in both lungs. Calcified lymph nodes in the mediastinum. 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
[2017-07-17 06:53] VITALS: BP 114/70
--- NOTE | 2017-07-17 07:23 | PN- Housestaff ---
Ellen Zhou 07/17/17 0723: Subjective Follow-up For: Dehydration/leukocytosis Malnutrition Pyuria ?Cavitary lung lesions in the past and significant weight loss dysphagia Complaints: no complaints Subjective: Patient seen and exmained at bedside. He offers no complaints. He is on airborne precautions. The sputum samples were not sent eysterday. SPoke with the patients ' sister @ [phone]. She staets that the patient ahs been having difficulty peeing and has to strain. Will start him on flomax. Review of Systems Constitutional: Denies: chills, fever, weakness. Cardiovascular: Denies: chest pain, palpitations, peripheral edema. Respiratory: Reports: sputum production. Denies: cough, short of breath, wheezing. Gastrointestinal: Denies: abdominal pain, constipation, diarrhea, nausea, vomiting. Genitourinary: Reports: no symptoms. Neurological/Psychological: Denies: headache, numbness, tingling, tremors. Objective Last 24 Hrs of Vital Signs/I&O Vital Signs Date Time Temp Pulse Resp B/P B/P Pulse O2 O2 Flow FiO2 Mean Ox Delivery Rate 07/17 0653 97.3 82 20 114/70 97 Room Air 07/16 2208 99.4 90 19 118/60 94 Room Air 07/16 1423 97.6 93 18 100/60 92 Room Air Intake & Output 07/17 0800 07/17 0000 07/16 1600 Intake Total 250 130 800 Output Total 300 750 Balance 250 -170 50 Intake, IV 10 10 Intake, Oral 240 120 800 Number 1 Bowel Movements Output, Urine 300 750 Physical Exam General Appearance: Alert, Oriented X3, Cooperative, No Acute Distress HEENT: Atraumatic, PERRLA, EOMI, Mucous Membr. moist/pink Neck: Supple, No JVD, No LAD Cardiovascular: Regular Rate, Normal S1, Normal S2, No Murmurs Lungs: Clear to Auscultation, Normal Air Movement Abdomen: Normal Bowel Sounds, Soft, No Tenderness Neurological: Normal Gait, Normal Speech, Strength at 5/5 X4 Ext, Normal Tone, Sensation Intact, Cranial Nerves 3-12 NL, Reflexes 2+ Extremities: No Edema Current Medications: Current Medications Sig/Samantha Start time Last Medication Dose Route Stop Time Status Admin Cholecalciferol 1,000 IU DAILY 07/16 1253 AC 07/16 PO 1602 Heparin Sodium 5,000 UNIT Q8 07/15 1400 AC 07/17 (Porcine) SC 0519 Melatonin 5 MG AT BEDTIME 07/16 2200 AC 07/16 PO 2102 Omeprazole 40 MG DAILY AC 07/16 0829 AC 07/17 PO 0519 Last 24 Hrs of Lab/Hawk Results Last 24 Hrs of Labs/Mics: Laboratory Tests 07/16/17 1845: Angiotensin Convert Enz Pending 07/16/17 1038: TB Test (QFT) Mitogen Pending, TB Test Mitogen - Nil Pending, TB Test Antigen - Nil Pending, TB Test (QFT) Interp Pending 07/16/17 0758: Anion Gap 10, Estimated GFR > 60, BUN/Creatinine Ratio 23.3, CBC w Diff NO MAN DIFF REQ, RBC 4.71, MCV 90.9, MCH 30.5, MCHC 33.5, RDW 15.8 H, MPV 7.9, Gran % 76.2 H, Lymphocytes % 9.4 L, Monocytes % 13.1 H, Eosinophils % 1.0, Basophils % 0.3, Absolute Granulocytes 9.4 H, Absolute Lymphocytes 1.2, Absolute Monocytes 1.6 H, Absolute Eosinophils 0.1, Absolute Basophils 0 Microbiology 07/16 170 LOWER RESP: AFB Culture with PCR Identification - COLB 07/16 1699 LOWER RESP: AFB Smear Concentration - COLB Orders Radiology Findings: SERVICE DATE: 07/16/17- EXAM TYPE: CAT - CT CHEST WO IV CONTRAST FINDINGS: FUR POINTER: Diffuse fibrotic lung disease. LUNGS: The confluent irregular thick-walled cavities in the apical segment of the right upper lobe persist and have thicker arguello. There is adjacent bronchiectasis and retraction of the hilum. There is increasing peripheral consolidation, fibrosis, and bronchiectasis involving the anterior segment of the right upper lobe. There is increasing consolidation and bronchiectasis with enlarging cavitation involving the superior segment of the left lower lobe. Widespread groundglass opacities persist throughout both lungs in a bronchocentric pattern. There is no significant improvement. The fibrosis and nodules along fissures are consistent with sarcoidosis. Conglomerate areas of irregular spiculated fibrosis is seen in both lower lobes. These have not changed significantly in size. MEDIASTINUM: The small mediastinal, pretracheal, and perihilar lymph nodes show calcification and granulomatous reaction. PLEURA: Pleural thickening is quite advanced in the right apex. AXILLA: No lymphadenopathy. The patient has become quite cachectic. UPPER ABDOMEN: Oral contrast is seen in the colon. No bulk adenopathy in the abdomen as visualized. OSSEOUS STRUCTURES: Unremarkable. IMPRESSION: Progressive fibrosis, cavitation, bronchiectasis, groundglass opacities, bronchocentric nodules, in both lungs. Calcified lymph nodes in the mediastinum. Assuming the lung biopsy in 2012 showed noncaseating granulomas, the findings described demonstrate unrelenting progressive cavitary fibrosis secondary to sarcoidosis. Assessment/Plan Assessment: 61-year-old male with past medical history significant for lung nodules, ex- smoker, brought in by ambulance from home to emergency department for not feeling well and productive cough. Vitals in emergency department patient afebrile, no tachycardia on examination, no tachypnea, blood pressure 132/85, oxygen saturation of 96-98% on room air. Labs significant for leukocytosis 11, and mild left shift, platelet count 446, normal hemoglobin and hematocrit, mild hyponatremia, chloride 94, carbon dioxide 32, urine showed 10-50 WBCs Patient was admitted on general medicine so for the management of following problems #1 Dehydration/leukocytosis #2 Malnutrition #3 Pyuria #4 ? Cavitary lung lesions in the past and significant weight loss #5 dysphagia Patient does not have significant evidence of infection. He did have some productive cough recently but denied any fevers or chills. Chest x-ray did not show any overwhelming evidence of pneumonia. He is not requiring any additional oxygen. His examination was significant for some rales. According to patient's sister he has lost around 40 pounds in the last 1 year. 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 He is not eating a lot and throws up most of the time after eating. Modified barium swallow was done on 07/10/2017 that showed mild pooling of contrast in the valleculae. No aspiration. Will repeat this region evaluation and consult GI if needed but this workup can be done as an outpatient. Due to patient's recent significant weight loss, history of cavitary lesions in the previous CAT scan, and hoarding along with unkempt conditions at home, we would like to rule out TB, and fungal infection (given eosinophilaia, cavitatory lung lesions) can also be considered. Pulmonology consult was placed. Patient had a biopsy of lung in 2011 that showed noncaseating granulomas with negative fungal or TB stains. Patient was put on airborne precautions. AFB smears were ordered, which were never sent. F/U QuantiFERON Gold which is pending. Recent x- ray also raise suspicion for sarcoidosis. CAT scan of chest showed progressive fibrosis, cavitation, bronchiectasis, groundglass opacities, bronchocentric nodules, in both lungs. Calcified lymph nodes in the mediastinum. Pulmonology recommended to obtain CASEY enzyme but in the recent literature utility of CASEY enzyme is questionable secondary to poor sensitivity and specificity. - Patient has mild pyuria. The date for urine culture he does not have any symptoms. We'll hold off on antibiotics. Will satrt him on Flomax as he has to strain while urinating. Patient is on SC heparin for DVT prophylaxis Patient is full code Patient is on regular diet Problem List: 1. Pneumonia 2. Lung nodule, multiple Pain Ratin Pain Location: n/a Pain Goal: Remain pain free Pain Plan: tyleol Tomorrow's Labs & Rationales: cbc- WBC; BEP: Na - hyponatremia Consulting Request: Consulting Specialty: Pulmonary Disease Calros Colby MD 07/17/17 2211: Attending MD Review Statement Attending Statement Attending MD Statement: examined this patient, discuss w/resident/PA/PASSENGER CAR INSPECTOR, agreed w/resident/PA/PASSENGER CAR INSPECTOR, reviewed EMR data (avail), discussed with nursing, discussed with case mgmt, reviewed images, amended to note Attending Assessment/Plan: The patient was seen and discussed with house staff. Appreciate pulmonary input. Await Quantiferon gold and sputum AFB. GI consult for dysphagia and weight loss. CT scan suggestive of sarcoidosis.
[2017-07-17 08:26] LABS: ABSOLUTE BASOPHIL COUNT 0 /CUMM (0.0-0.2); ABSOLUTE EOSINOPHIL COUNT 0.7 /CUMM (0.0-0.7); ABSOLUTE GRANULOCYTE CT 5.9 /CUMM (1.4-6.5); ABSOLUTE LYMPH COUNT 1.5 /CUMM (1.2-3.4); ABSOLUTE MONOCYTE COUNT 1.5 /CUMM (0.10-0.60); BASOPHIL % 0.3 % (0.0-2.0); EOSINOPHIL % 7.1 % (0-5); HEMATOCRIT 45.5 % (42-52); MEAN CORPUSCULAR HGB 30.6 PG (27.0-31.0); MEAN CORPUSCULAR HGB CONC 33.6 G/DL (33.0-37.0); MEAN CORPUSCULAR VOLUME 91.1 FL (80.0-94.0); MEAN PLATELET VOLUME 7.9 FL (7.4-10.4); RBC DISTRIBUTION WIDTH 16.1 % (11.5-14.5); RED BLOOD CELL CT 4.99 /CUMM (4.70-6.10); WHITE BLOOD CELL COUNT 9.6 /CUMM (4.8-10.8)
--- NOTE | 2017-07-17 08:38 | PN- Pulmonary ---
Subjective HPI/Critical Care Issues: Patient's clinical status remains unchanged. CAT scan was reviewed Objective Current Medications: Current Medications Sig/Samantha Start time Last Medication Dose Route Stop Time Status Admin Cholecalciferol 1,000 IU DAILY 07/16 1253 AC 07/16 PO 1602 Heparin Sodium 5,000 UNIT Q8 07/15 1400 AC 07/17 (Porcine) SC 0519 Melatonin 5 MG AT BEDTIME 07/16 2200 AC 07/16 PO 2102 Omeprazole 40 MG DAILY AC 07/16 0829 AC 07/17 PO 0519 Vital Signs & I&O Last 24 Hrs of Vitals and I&O: Vital Signs Date Time Temp Pulse Resp B/P B/P Pulse O2 O2 Flow FiO2 Mean Ox Delivery Rate 07/17 0653 97.3 82 20 114/70 97 Room Air 07/16 2208 99.4 90 19 118/60 94 Room Air 07/16 1423 97.6 93 18 100/60 92 Room Air Intake & Output 07/17 1600 07/17 0800 07/17 0000 Intake Total 250 130 Output Total 300 Balance 250 -170 Intake, IV 10 10 Intake, Oral 240 120 Output, Urine 300 Oximetry 97% exam of his chest shows occasional crackles are no wheezes cardiac exam shows regular S1 and S2 without murmurs Impression/Plan Impression/Plan Impression/Plan: 61-year-old gentleman with long-standing abnormal CAT scan of uncertain etiology possibly related to burned-out sarcoidosis. Diagnostic studies are still pending Recommendations: GI evaluation because of persistent dysphagia. Obtain QuantiFERON Gold. Sputum C&S for routine fungus and AFB. . Repeat angiotensin-converting enzyme no further suggestions pending results of above serologies and sputum specimens
[2017-07-17 09:44] LABS: PLATELET COUNT 461 /CUMM (130-400)
[2017-07-17 14:04] VITALS: BP 100/60
[2017-07-17 22:36] VITALS: BP 98/60
[2017-07-18 06:28] VITALS: BP 110/64
--- NOTE | 2017-07-18 07:21 | PN- Housestaff ---
See Addendum Subjective Follow-up For: Malnutrition - moderate calorie Pyuria ?Cavitary lung lesions in the past and significant weight loss dysphagia Complaints: no complaints Subjective: Patient seen and exmained at bedside. Offers no complaints. States that his appetite is much better today. Of noet he continues to be on airborne precautions presumably for TB. Spoke with lab. Evie will be in tmrw. Review of Systems Constitutional: Denies: chills, fever. EENTM: Denies: visual changes. Cardiovascular: Denies: chest pain, palpitations. Respiratory: Denies: cough, short of breath. Gastrointestinal: Denies: abdominal pain, nausea, vomiting. Genitourinary: Reports: no symptoms. Neurological/Psychological: Denies: headache, numbness, tingling, tremors. Objective Last 24 Hrs of Vital Signs/I&O Vital Signs Date Time Temp Pulse Resp B/P B/P Pulse O2 O2 Flow FiO2 Mean Ox Delivery Rate 07/18 0628 97.2 94 16 110/64 96 Room Air 07/17 2236 97.3 100 18 98/60 97 Room Air 07/17 1404 97.2 97 20 100/60 98 Intake & Output 07/18 0800 07/18 0000 07/17 1600 Intake Total 250 250 900 Output Total 150 Balance 100 250 900 Intake, IV 10 10 Intake, Oral 240 240 900 Output, Urine 150 Patient 107 lb Weight Physical Exam General Appearance: Alert, Oriented X3, Cooperative, No Acute Distress HEENT: Atraumatic, PERRLA, EOMI, Mucous Membr. moist/pink Neck: Supple, No JVD, No LAD Cardiovascular: Regular Rate, Normal S1, Normal S2, No Murmurs Lungs: Clear to Auscultation, Normal Air Movement Abdomen: Normal Bowel Sounds, Soft, No Tenderness Neurological: Normal Gait, Normal Speech, Strength at 5/5 X4 Ext, Normal Tone Extremities: No Edema, Normal Pulses Current Medications: Current Medications Sig/Samantha Start time Last Medication Dose Route Stop Time Status Admin Cholecalciferol 1,000 IU DAILY 07/16 1253 AC 07/17 PO 927 Heparin Sodium 5,000 UNIT Q8 07/15 1400 AC 07/18 (Porcine) SC 0518 Melatonin 5 MG AT BEDTIME 07/16 2199 AC 07/17 PO 2013 Mirtazapine 7.5 MG AT BEDTIME 07/17 2199 AC 07/17 PO 2013 Omeprazole 40 MG DAILY AC 07/16 0829 AC 07/18 PO 517 Tamsulosin HCl 0.4 MG DAILY 07/17 2199 07/17 PO 2013 Last 24 Hrs of Lab/Hawk Results Last 24 Hrs of Labs/Mics: Laboratory Tests 07/17/17 0746: CBC w Diff NO MAN DIFF REQ, RBC 4.99, MCV 91.1, MCH 30.6, MCHC 33.6, RDW 16.1 H , MPV 7.9, Gran % 62.0, Lymphocytes % 15.3 L, Monocytes % 15.3 H, Eosinophils % 7.1 H, Basophils % 0.3, Absolute Granulocytes 5.9, Absolute Lymphocytes 1.5, Absolute Monocytes 1.5 H, Absolute Eosinophils 0.7, Absolute Basophils 0 Microbiology 07/17 1010 LOWER RESP: Routine Culture - RECD 07/17 1010 LOWER RESP: AFB Culture with PCR Identification - RES 07/17 101 LOWER RESP: AFB Smear Concentration - RES Assessment/Plan Assessment: 61-year-old male with past medical history significant for lung nodules, ex- smoker, brought in by ambulance from home to emergency department for not feeling well and productive cough. Vitals in emergency department patient afebrile, no tachycardia on examination, no tachypnea, blood pressure 132/85, oxygen saturation of 96-98% on room air. Labs significant for leukocytosis 11, and mild left shift, platelet count 446, normal hemoglobin and hematocrit, mild hyponatremia, chloride 94, carbon dioxide 32, urine showed 10-50 WBCs Patient was admitted on general medicine so for the management of following problems #1 Dehydration/leukocytosis #2 Malnutrition - moderate calorie #3 Pyuria #4 ? Cavitary lung lesions in the past and significant weight loss #5 dysphagia Patient does not have significant evidence of infection. He did have some productive cough recently but denied any fevers or chills. Chest x-ray did not show any overwhelming evidence of pneumonia. He is not requiring any additional oxygen. According to patient's sister he has lost around 40 pounds in the last 1 year. 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 He is not eating a lot and throws up most of the time after eating. Modified barium swallow was done on 07/10/2017 that showed mild pooling of contrast in the valleculae. No aspiration. F/U GI consult for further workup inpatient vs outpatient. Due to patient's recent significant weight loss, history of cavitary lesions in the previous CAT scan, and hoarding along with unkempt conditions at home, we would like to rule out TB, and fungal infection (given eosinophilaia, cavitatory lung lesions) can also be considered. Pulmonology consult was placed. Patient had a biopsy of lung in 2011 that showed noncaseating granulomas with negative fungal or TB stains. Patient was put on airborne precautions. AFB smears were ordered, which were never sent. F/U QuantiFERON Gold which is pending. Recent x- ray also raise suspicion for sarcoidosis. CAT scan of chest showed progressive fibrosis, cavitation, bronchiectasis, groundglass opacities, bronchocentric nodules, in both lungs. Calcified lymph nodes in the mediastinum. Pulmonology recommended to obtain CASEY enzyme but in the recent literature utility of CASEY enzyme is questionable secondary to poor sensitivity and specificity. - Patient has mild pyuria. The date for urine culture he does not have any symptoms. We'll hold off on antibiotics. Continue Flomax as he has to strain while urinating. Patientw s deemed moderate calorie malnourished, after he was seen by nutrition. Started on Ensure. He was also placed on Mirtazapine to help stimulate his appetite Patient is on SC heparin for DVT prophylaxis Patient is full code Patient is on regular diet Problem List: 1. Malnutrition Pain Ratin Pain Location: n/a Pain Goal: Remain pain free Pain Plan: tylenol Tomorrow's Labs & Rationales: n/a Consulting Request: Consulting Specialty: Pulmonary Disease
[2017-07-18 08:52] LABS: ABSOLUTE BASOPHIL COUNT 0 /CUMM (0.0-0.2); ABSOLUTE EOSINOPHIL COUNT 0.7 /CUMM (0.0-0.7); ABSOLUTE GRANULOCYTE CT 6.8 /CUMM (1.4-6.5); ABSOLUTE LYMPH COUNT 0.9 /CUMM (1.2-3.4); ABSOLUTE MONOCYTE COUNT 0.8 /CUMM (0.10-0.60); BASOPHIL % 0 % (0.0-2.0); GRANULOCYTE % 73.9 % (42.2-75.2); HEMATOCRIT 42.7 % (42-52); MEAN CORPUSCULAR HGB 30.6 PG (27.0-31.0); MEAN CORPUSCULAR HGB CONC 33.5 G/DL (33.0-37.0); MEAN CORPUSCULAR VOLUME 91.2 FL (80.0-94.0); MEAN PLATELET VOLUME 7.9 FL (7.4-10.4); PLATELET COUNT 451 /CUMM (130-400); RED BLOOD CELL CT 4.68 /CUMM (4.70-6.10); WHITE BLOOD CELL COUNT 9.2 /CUMM (4.8-10.8)
--- NOTE | 2017-07-18 08:53 | PN- Pulmonary ---
Subjective HPI/Critical Care Issues: Patient has no complaints. He seems to be eating better. Objective Current Medications: Current Medications Sig/Samantha Start time Last Medication Dose Route Stop Time Status Admin Cholecalciferol 1,000 IU DAILY 07/16 1253 AC 07/17 PO 0928 Heparin Sodium 5,000 UNIT Q8 07/15 1400 AC 07/18 (Porcine) SC 0518 Melatonin 5 MG AT BEDTIME 07/16 2199 AC 07/17 PO 2013 Mirtazapine 7.5 MG AT BEDTIME 07/17 2199 AC 07/17 PO 2013 Omeprazole 40 MG DAILY AC 07/16 0829 AC 07/18 PO 0518 Tamsulosin HCl 0.4 MG DAILY 07/17 2199 AC 07/17 PO 2013 Vital Signs & I&O Last 24 Hrs of Vitals and I&O: Vital Signs Date Time Temp Pulse Resp B/P B/P Pulse O2 O2 Flow FiO2 Mean Ox Delivery Rate 07/18 0628 97.2 94 16 110/64 96 Room Air 07/17 2236 97.3 100 18 98/60 97 Room Air 07/17 1404 97.2 97 20 100/60 98 Intake & Output 07/18 1600 07/18 0800 07/18 0000 Intake Total 250 250 Output Total 150 Balance 100 250 Intake, IV 10 10 Intake, Oral 240 240 Output, Urine 150 As her oximetry 96% exam of his chest shows rare crackles are no wheezes cardiac exam shows regular S1 and S2 without murmurs Impression/Plan Impression/Plan Impression/Plan: 61-year-old gentleman with esophageal dysmotility chronically abnormal chest x- ray status post biopsy showed noncaseating granulomas. No further diagnostic studies are yet available Recommendations: GI evaluation because of persistent dysphagia. Obtain QuantiFERON Gold. Sputum C&S for routine fungus and AFB. . Repeat angiotensin-converting enzyme please follow up on serologies and cultures.
[2017-07-18 14:29] VITALS: BP 100/60
--- NOTE | 2017-07-18 17:58 | Cons- Gastroenterology ---
General Information and HPI Consulting Request Date of Consult: 07/18/17 Requested By: Carlos Colby MD Reason for Consult: Dysphagia Weight loss Source of Information: patient, old records Exam Limitations: poor historian History of Present Illness: The patient is a very poor historian. He is admitted with cough and weight loss. He claims that he has had years of problems swallowing, intermittent. This consists of difficulty with both liquids and solids; both initiating swallowing, as well as sticking within his chest. He had some prior to hospitalization, but denies any dysphagia at the moment. He has also had heartburn, vomiting, regurgitation; he cannot state for how long, perhaps months or more. He takes antacids on a semi-regular basis. He has lost a significant amount of weight. He attributes this at least partially to decreased oral intake, perhaps related to difficulty swallowing. He cannot recall whether he has had evaluation for all of these, including endoscopic. Swallowing evaluation by speech pathology during this hospitalization was essentially normal with minimal risk of aspiration. He does not have abdominal pain. He has a tendency to constipation and hard stools. He does not recall having had passage of blood per rectum or black stool. He denies family history of GI malignancy. Allergies/Medications Allergies: Coded Allergies: NO KNOWN ALLERGIES (02/03/14) Home Med List: Cholecalciferol (Vitamin D3) 1,000 UNIT TABLET 1,000 IU PO DAILY SUPPLEMENT Omeprazole 20 MG CAPSULE.DR 40 MG PO DAILY AC GERD Current Medications: Current Medications Sig/Samantha Start time Last Medication Dose Route Stop Time Status Admin Cholecalciferol 1,000 IU DAILY 07/16 1253 AC 07/18 PO 1237 Heparin Sodium 5,000 UNIT Q8 07/15 1400 AC 07/18 (Porcine) SC 1457 Melatonin 5 MG AT BEDTIME 07/160 AC 07/17 PO 2013 Mirtazapine 7.5 MG AT BEDTIME 07/17 220 AC 07/17 PO 2013 Omeprazole 40 MG DAILY AC 07/16 0829 AC 07/18 PO 0518 Tamsulosin HCl 0.4 MG DAILY 07/17 2199 AC 07/18 PO 1238 Past History Travel History Traveled to [place] past 21 day No Medical History Blood Transfusion Hx: No Neurological: NONE EENT: NONE Cardiovascular: NONE Respiratory: LUNG NODULES PER PT Gastrointestinal: NONE Hepatic: NONE Renal: NONE Musculoskeletal: NONE Psychiatric: NONE (Denies) Endocrine: NONE Blood Disorders: NONE Cancer(s): NONE TORCH BRAZER/Reproductive: NONE Surgical History Surgical History: non-contributory, SPLENECTOMY Psychosocial History Where Do You Live? Home Services at Home: None Smoking Status: Former Smoker Exam & Diagnostic Data Vital Signs and I&O Vital Signs Date Time Temp Pulse Resp B/P B/P Pulse O2 O2 Flow FiO2 Mean Ox Delivery Rate 07/18 1429 98.2 90 18 100/60 97 Room Air 07/18 1238 97.2 94 16 110/64 07/18 0628 97.2 94 16 110/64 96 Room Air 07/17 2236 97.3 100 18 98/60 97 Room Air Intake & Output 07/18 1600 07/18 0400 07/17 1600 07/17 0400 07/16 1600 07/16 0400 Intake Total 799 408 5434 130 980 540 Output Total 312 461 4702 600 Balance -975 192 0354 -170 -270 -60 Intake, IV 10 10 10 10 Intake, Oral 623 365 5264 120 980 540 Number 1 1 Bowel Movements Output, Urine 377 606 3511 600 Patient 107 lb 107 lb Weight Weight Bed scale Measurement Method Physical Exam: Thin white male, no apparent distress. Skin without lesion. No adenopathy. Sclera anicteric. No oropharyngeal lesions. Neck supple without thyromegaly or mass. Heart regular rhythm. Lungs with rhonchi. Abdomen soft, nondistended, normal bowel sounds; no tenderness, mass, organomegaly. Extremities without clubbing, cyanosis or edema. Results Pertinent Lab Results: Laboratory Tests 07/18 07/17 0815 0746 Hematology CBC w Diff NO MAN DIFF REQ NO MAN DIFF REQ WBC (4.8 - 10.8 /CUMM) 9.2 9.6 RBC (4.70 - 6.10 /CUMM) 4.68 L 4.99 Hgb (14.0 - 18.0 G/DL) 14.3 15.3 Hct (42 - 52 %) 42.7 45.5 MCV (80.0 - 94.0 FL) 91.2 91.1 MCH (27.0 - 31.0 PG) 30.6 30.6 MCHC (33.0 - 37.0 G/DL) 33.5 33.6 RDW (11.5 - 14.5 %) 16.0 H 16.1 H Plt Count (130 - 400 /CUMM) 451 H 461 H MPV (7.4 - 10.4 FL) 7.9 7.9 Gran % (42.2 - 75.2 %) 73.9 62.0 Lymphocytes % (20.5 - 51.1 %) 9.3 L 15.3 L Monocytes % (1.7 - 9.3 %) 8.8 15.3 H Eosinophils % (0 - 5 %) 8.0 H 7.1 H Basophils % (0.0 - 2.0 %) 0 0.3 Absolute Granulocytes (1.4 - 6.5 /CUMM) 6.8 H 5.9 Absolute Lymphocytes (1.2 - 3.4 /CUMM) 0.9 L 1.5 Absolute Monocytes (0.10 - 0.60 /CUMM) 0.8 H 1.5 H Absolute Eosinophils (0.0 - 0.7 /CUMM) 0.7 0.7 Absolute Basophils (0.0 - 0.2 /CUMM) 0 0 07/16 07/16 07/16 0305 1038 0754 Chemistry Sodium (137 - 145 mmol/L) 136 L Potassium (3.5 - 5.1 mmol/L) 4.8 Chloride (98 - 107 mmol/L) 98 Carbon Dioxide (22 - 30 mmol/L) 29 Anion Gap (5 - 16) 10 BUN (9 - 20 mg/dL) 14 Creatinine (0.7 - 1.2 mg/dL) 0.6 L Estimated GFR (>60 ml/min) > 60 BUN/Creatinine Ratio (7 - 25 %) 23.3 Angiotensin Convert Enz Pending Hematology CBC w Diff NO MAN DIFF REQ WBC (4.8 - 10.8 /CUMM) 12.3 H RBC (4.70 - 6.10 /CUMM) 4.71 Hgb (14.0 - 18.0 G/DL) 14.4 Hct (42 - 52 %) 42.8 MCV (80.0 - 94.0 FL) 90.9 MCH (27.0 - 31.0 PG) 30.5 MCHC (33.0 - 37.0 G/DL) 33.5 RDW (11.5 - 14.5 %) 15.8 H Plt Count (130 - 400 /CUMM) 441 H MPV (7.4 - 10.4 FL) 7.9 Gran % (42.2 - 75.2 %) 76.2 H Lymphocytes % (20.5 - 51.1 %) 9.4 L Monocytes % (1.7 - 9.3 %) 13.1 H Eosinophils % (0 - 5 %) 1.0 Basophils % (0.0 - 2.0 %) 0.3 Absolute Granulocytes (1.4 - 6.5 /CUMM) 9.4 H Absolute Lymphocytes (1.2 - 3.4 /CUMM) 1.2 Absolute Monocytes (0.10 - 0.60 /CUMM) 1.6 H Absolute Eosinophils (0.0 - 0.7 /CUMM) 0.1 Absolute Basophils (0.0 - 0.2 /CUMM) 0 Serology HIV 1&2 Ab Western Blot (NONREACTIVE) NONREACTIVE TB Test (QFT) Mitogen (() IU/mL) 0.03 TB Test Mitogen - Nil (() IU/mL) 2.73 TB Test Antigen - Nil (() IU/mL) <0.00 TB Test (QFT) Interp (NEGATIVE) NEGATIVE Imaging/Other Studies: CT scan of the chest on July 16: IMPRESSION: Progressive fibrosis, cavitation, bronchiectasis, groundglass opacities, bronchocentric nodules, in both lungs. Calcified lymph nodes in the mediastinum. 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 Modified barium swallow on July 10: IMPRESSION: 1. Mild pooling of contrast in the valleculae. 2. No aspiration. Esophagram, performed in 2010: IMPRESSION: Complex hiatal hernia with both sliding and paraesophageal component. Tertiary contractions. Gastroesophageal reflux. Assessment/Plan Assessment/Recommendations: Complete note to follow. The patient presents with long-standing dysphagia to both liquids and solids, and a question of chronic regurgitation/aspiration. Concern is for an underlying motility disorder. Recommendations * Esophagram, with both liquid barium as well as barium soaked bread. * Consideration for endoscopy as part of evaluation; defer for now * May eventually need esophageal motility study * As the patient denies dysphagia currently, would continue regular diet. Consult Acknowledgment - Thank you for your consult request.
[2017-07-18 22:02] VITALS: BP 110/60
[2017-07-19 06:30] VITALS: BP 90/50
--- NOTE | 2017-07-19 07:21 | PN- Housestaff ---
Ellen Zhou 07/19/17 0721: Subjective Follow-up For: Malnutrition - moderate calorie Pyuria ?Cavitary lung lesions in the past and significant weight loss - r/o TB dysphagia Complaints: no complaints Subjective: Patient seen and examiend at bedside. He is eager to come off the isolation. Of note his appetite his improved and he states he fees much up-spirited Review of Systems Constitutional: Denies: chills, fever, weakness. EENTM: Denies: visual changes. Cardiovascular: Denies: chest pain, orthopena, palpitations, peripheral edema. Respiratory: Reports: cough. Denies: short of breath, stridor, wheezing. Gastrointestinal: Denies: abdominal pain, constipation, diarrhea, nausea, vomiting. Genitourinary: Reports: no symptoms. Neurological/Psychological: Denies: headache, numbness, tingling, tremors. Objective Last 24 Hrs of Vital Signs/I&O Vital Signs Date Time Temp Pulse Resp B/P B/P Pulse O2 O2 Flow FiO2 Mean Ox Delivery Rate 07/19 0630 97.5 72 20 90/50 94 Room Air 07/19 0000 94 Room Air 07/18 2202 98.3 92 19 110/60 94 Room Air 07/18 1429 98.2 90 18 100/60 97 Room Air 07/18 1238 97.2 94 16 110/64 Intake & Output 07/19 0800 07/19 0000 07/18 1600 Intake Total 400 240 Output Total 400 Balance 400 240 -400 Intake, Oral 400 240 Output, Urine 400 Physical Exam General Appearance: Alert, Oriented X3, Cooperative, No Acute Distress HEENT: Atraumatic, PERRLA, EOMI, Mucous Membr. moist/pink Neck: Supple, No JVD, No thryomegaly, No LAD Cardiovascular: Regular Rate, Normal S1, Normal S2, No Murmurs Lungs: Clear to Auscultation, Normal Air Movement Abdomen: Normal Bowel Sounds, Soft, No Tenderness Neurological: Normal Speech, Strength at 5/5 X4 Ext, Normal Tone, Sensation Intact, Cranial Nerves 3-12 NL, Reflexes 2+ Extremities: No Edema Current Medications: Current Medications Sig/Samantha Start time Last Medication Dose Route Stop Time Status Admin Cholecalciferol 1,000 IU DAILY 07/16 1253 AC 07/18 PO 1237 Guaifenesin 10 ML ONCE ONE 07/18 2114 DC 07/18 PO 07/18 Heparin Sodium 5,000 UNIT Q8 07/15 1400 AC 07/19 (Porcine) SC 0630 Melatonin 5 MG AT BEDTIME 07/16 2199 AC 07/18 PO 2057 Mirtazapine 7.5 MG AT BEDTIME 07/17 2199 AC 07/18 PO 2057 Omeprazole 40 MG DAILY AC 07/16 08 AC 07/19 PO 629 Tamsulosin HCl 0.4 MG DAILY 07/17 2199 AC 07/18 PO 123 Last 24 Hrs of Lab/Hawk Results Last 24 Hrs of Labs/Mics: Laboratory Tests 07/18/17 0815: CBC w Diff NO MAN DIFF REQ, RBC 4.68 L, MCV 91.2, MCH 30.6, MCHC 33.5, RDW 16.0 H, MPV 7.9, Gran % 73.9, Lymphocytes % 9.3 L, Monocytes % 8.8, Eosinophils % 8.0 H, Basophils % 0, Absolute Granulocytes 6.8 H, Absolute Lymphocytes 0.9 L , Absolute Monocytes 0.8 H, Absolute Eosinophils 0.7, Absolute Basophils 0 Microbiology 07/19 799 LOWER RESP: AFB Culture with PCR Identification - COLB 07/19 799 LOWER RESP: AFB Smear Concentration - COLB Assessment/Plan Assessment: 61-year-old male with past medical history significant for lung nodules, ex- smoker, brought in by ambulance from home to emergency department for not feeling well and productive cough. Vitals in emergency department patient afebrile, no tachycardia on examination, no tachypnea, blood pressure 132/85, oxygen saturation of 96-98% on room air. Labs significant for leukocytosis 11, and mild left shift, platelet count 446, normal hemoglobin and hematocrit, mild hyponatremia, chloride 94, carbon dioxide 32, urine showed 10-50 WBCs Patient was admitted on general medicine so for the management of following problems #1 Dehydration/leukocytosis #2 Malnutrition - moderate calorie #3 Pyuria #4 ? Cavitary lung lesions in the past and significant weight loss #5 dysphagia Patient does not have significant evidence of infection. He did have some productive cough recently but denied any fevers or chills. Chest x-ray did not show any overwhelming evidence of pneumonia. He is not requiring any additional oxygen. According to patient's sister he has lost around 40 pounds in the last 1 year. 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 He is not eating a lot and throws up most of the time after eating. Modified barium swallow was done on 07/10/2017 that showed mild pooling of contrast in the valleculae. No aspiration. F/U GI consult for further workup as an outpatient. Due to patient's recent significant weight loss, history of cavitary lesions in the previous CAT scan, and hoarding along with unkempt conditions at home, R/O TB with quantiferon being negative, and fungal infection (given eosinophilaia, cavitatory lung lesions) could satill be a possibility. Pulmonology consult was placed. Patient had a biopsy of lung in 2011 that showed noncaseating granulomas with negative fungal or TB stains. Will take him off airborne precautions. AFB smears were ordered, which is pending (only 1 sample sent). F/U QuantiFERON Gold is negatiev. Recent x-ray also raise suspicion for sarcoidosis. CAT scan of chest showed progressive fibrosis, cavitation, bronchiectasis, groundglass opacities, bronchocentric nodules, in both lungs. Calcified lymph nodes in the mediastinum. Pulmonology recommended to obtain CASEY enzyme but in the recent literature utility of CASEY enzyme is questionable secondary to poor sensitivity and specificity. Plan to discahrge home with health sevices today. - Patient has mild pyuria. The date for urine culture he does not have any symptoms. We held off on antibiotics. Continue Flomax. Patient was deemed to have moderate calorie malnourishment, after he was seen by nutrition. Started on Ensure. He was also placed on Mirtazapine to help stimulate his appetite. Spoke with the patient's sister, and upated her on the reuslts of blood owrk. Also filled put short term diability paperwork. Pateint will reuqire at least a month after discharge to recuperate,a dn neeed evaluation by his PCP to determine when he can safely resume work. Patient is on SC heparin for DVT prophylaxis Patient is full code Patient is on regular diet Problem List: 1. Malnutrition 2. Pneumonia Pain Ratin Pain Location: n/a Pain Goal: Remain pain free Pain Plan: tylenol Tomorrow's Labs & Rationales: n/a Consulting Request: Consulting Specialty: Pulmonary Disease Discharge Plan Discharge Disposition: home Stable for Discharge? Yes Anticipated Discharge (Day): today If Discharged Today/In 24 Hrs: W-10/discharge paper done, CMR done Carlos Colby MD 07/19/17 1506: Attending MD Review Statement Attending Statement Attending MD Statement: examined this patient, discuss w/resident/PA/SENIOR APPLICATIONS DEVELOPER, agreed w/resident/PA/SENIOR APPLICATIONS DEVELOPER, reviewed EMR data (avail), discussed with nursing, discussed with case mgmt, amended to note Attending Assessment/Plan: The patient was seen and discussed with house staff, nursing, and case management. GI & Pulmonary input appreciated. OK to discharge to home with plans to complete workup as OP (?barium swallow and EGD, etc.). Will also suggest urology referral as OP (PCP will arrange).
[2017-07-19] MEDS ORDERED: FLOMAX0.4 M1 PO ×2 (08:41→10:02)
[2017-07-19] MEDS ORDERED: GUAIFENESIN AC473 M2 PO ×2 (08:41→10:02)
[2017-07-19] MEDS ORDERED: MIRTAZAPINE7.5 M1 PO ×2 (08:41→10:02)
[2017-07-19] MEDS ORDERED: MELATONIN5 M7 PO ×2 (08:41→10:02)
--- NOTE | 2017-07-19 08:43 | PN- Pulmonary ---
Subjective HPI/Critical Care Issues: Patient continues to complain of difficulty with swallowing often forcing emesis. He attributes his weight loss to vomiting and decreased intake because of concerns over dysphasia. Serology for TB is negative Objective Current Medications: Current Medications Sig/Samantha Start time Last Medication Dose Route Stop Time Status Admin Cholecalciferol 1,000 IU DAILY 07/16 1253 AC 07/18 PO 1237 Guaifenesin 10 ML ONCE ONE 07/18 2114 DC 07/18 PO 07/18 211 2211 Guaifenesin/Codeine 10 ML Q6P PRN 07/19 0815 AC Phosphate PO Heparin Sodium 5,000 UNIT Q8 07/15 1400 AC 07/19 (Porcine) SC 0630 Melatonin 5 MG AT BEDTIME 07/16 2199 AC 07/18 PO 2057 Mirtazapine 7.5 MG AT BEDTIME 07/17 220 AC 07/18 PO 205 Omeprazole 40 MG DAILY AC 07/16 0829 AC 07/19 PO 0630 Tamsulosin HCl 0.4 MG DAILY 07/17 2200 AC 07/18 PO 1238 Vital Signs & I&O Last 24 Hrs of Vitals and I&O: Vital Signs Date Time Temp Pulse Resp B/P B/P Pulse O2 O2 Flow FiO2 Mean Ox Delivery Rate 07/19 0630 97.5 72 20 90/50 94 Room Air 07/19 0000 94 Room Air 07/18 2202 98.3 92 19 110/60 94 Room Air 07/18 1429 98.2 90 18 100/60 97 Room Air 07/18 1238 97.2 94 16 110/64 Intake & Output 07/19 1600 07/19 0800 07/19 0000 Intake Total 400 240 Output Total Balance 400 240 Intake, Oral 400 240 Room air oxygen saturation 94% exam of his chest occasional crackles cardiac exam regular S1 and S2 without murmurs Impression/Plan Impression/Plan Impression/Plan: 61-year-old with chronically abnormal CAT scan. Differential relates to chronic aspiration versus burned-out sarcoid. At this point further hospitalization unless endoscopy is to be performed does not appear necessary from a pulmonary standpoint. Recommendations: Further evaluation of dysphagia per GI. Patient can be seen in the office for further pulmonary care
--- NOTE | 2017-07-19 08:44 | Patient Discharge Instructions ---
Discharge Instructions General Discharge Information You were seen/treated for: - Cavitatory lung lesion - Moderate calorie malnutrition - Dysphagia - Depression Special Instructions: Please follow up with your primary care physician in one week. Please follow up with your GI doctor in one week for an OP endoscopy Please follow up with your medical nurse in one week. Diet Recommended Diet: Regular Activity Activity Self Limited: Yes Acute Coronary Syndrome Inclusion Criteria At DC or during hospital stay patient has or had the following: ACS DIAGNOSIS No Discharge Core Measures Meds if any: Prescribed or Continued at Discharge Meds if any: NOT Prescribed or Continued at Discharge Congestive Heart Failure Inclusion Criteria At DC or during hospital stay patient has or had the following: CHF DIAGNOSIS No Discharge Core Measures Meds if any: Prescribed or Continued at Discharge Meds if any: NOT Prescribed or Continued at Discharge Cerebrovascular accident Inclusion Criteria At DC or during hospital stay patient has or had the following: CVA/TIA Diagnosis No Discharge Core Measures Meds if any: Prescribed or Continued at Discharge Meds if any: NOT Prescribed or Continued at Discharge Venous thromboembolism Inclusion Criteria VTE Diagnosis No VTE Type NONE VTE Confirmed by (Test) NONE Discharge Core Measures - Per Current guidelines, there needs to be overlap - treatment for the first 5 days of Warfarin therapy. - If discharged on Warfarin prior to 5 days of - overlap therapy, the patient will need to be - assessed for post discharge needs including - *Post discharge parental anticoagulation - *Warfarin and/or parental anticoagulation education - *Follow up date to check INR post discharge At least 5 days overlap therapy as Inpatient No Meds if any: Prescribed or Continued at Discharge Note: Overlap Therapy is Warfarin and Anticoagulant Meds if any: NOT Prescribed or Continued at Discharge
[2017-07-19 09:50] VITALS: BP 90/50
[2017-07-19] MEDS ORDERED: OMEPRAZOLE20 M2 PO (10:02)
[2017-07-19] MEDS ORDERED: VITAMIN D31000 UNI2 PO (10:02)
== END 2017-07-19 14:28 | disposition home health service (06) | DRG 641 ==
LOC: ERH 10:06 → 2NA 11:55 → ERHI 11:55 → CANRESERV 13:15 → ENRESERV 13:15 → ENTRNSPT 14:52 → EDTRNSPTTYP 14:58 → CMPTRNSPT 14:58 → EDBEDREQ 15:01 → CMPTRNSPT 15:02 → ERHI 15:36 → ENRESERV 16:47 → ENTRNSPT 16:54 → EDTRNSPTSTS 17:13 → EDTRNSPT 17:13 → 2NA 18:22 → CMPTRNSPT 18:32 → ENPENDDIS 07-19 10:46 → 2NA 07-19 14:28
PROVIDERS: Emergency Medicine; Internal Medicine Infectious Disease; Student in an Organized Health Care Education/Training Program
DX: E86.0 Dehydration (principal); R64 Cachexia; E44.0 Moderate protein-calorie malnutrition; R13.10 Dysphagia, unspecified; Z68.1 Body mass index [BMI] 19.9 or less, adult; N39.0 Urinary tract infection, site not specified; R91.8 Other nonspecific abnormal finding of lung field; D72.829 Elevated white blood cell count, unspecified; Z87.09 Personal history of other diseases of the respiratory system; Z87.891 Personal history of nicotine dependence; F32.9 Major depressive disorder, single episode, unspecified; K44.9 Diaphragmatic hernia without obstruction or gangrene; Z63.4 Disappearance and death of family member; G47.00 Insomnia, unspecified; K21.9 Gastro-esophageal reflux disease without esophagitis
CPT/HCPCS: 2NAP; 86480; 36415; 36592; 71046; 81001; 82436; 87040; 87070; 87071; 87086; 87389; 87449; 87450; 87804; 87804-59; 93005; 93010; 96361; 96365; 96375; 99232; J0456; J0696; J1644; J2930; J7060

== ENCOUNTER 2017-08-30 10:16 | Emergency (ER) | payer OTHER ==
[~2017-08-30] VITALS: Ht 167.6 cm; Wt 48.1 kg
[~2017-08-30 10:16] MED LIST changes: +FLOMAX0.4 M1 PO; +GUAIFENESIN AC473 M2 PO; +MELATONIN5 M7 PO; +MIRTAZAPINE7.5 M1 PO; +OMEPRAZOLE20 M2 PO; +VITAMIN D31000 UNI2 PO
[2017-08-30 10:37] LABS: ABSOLUTE BASOPHIL COUNT 0 /CUMM (0.0-0.2); ABSOLUTE EOSINOPHIL COUNT 0.6 /CUMM (0.0-0.7); ABSOLUTE GRANULOCYTE CT 8.3 /CUMM (1.4-6.5); ABSOLUTE LYMPH COUNT 0.6 /CUMM (1.2-3.4); ABSOLUTE MONOCYTE COUNT 1.6 /CUMM (0.10-0.60); BASOPHIL % 0.1 % (0.0-2.0); EOSINOPHIL % 5.6 % (0-5); GRANULOCYTE % 74.7 % (42.2-75.2); HEMATOCRIT 40.8 % (42-52); MEAN CORPUSCULAR HGB 30.5 PG (27.0-31.0); MEAN CORPUSCULAR HGB CONC 33.6 G/DL (33.0-37.0); MEAN CORPUSCULAR VOLUME 90.7 FL (80.0-94.0); MEAN PLATELET VOLUME 7.3 FL (7.4-10.4); PLATELET COUNT 427 /CUMM (130-400); RBC DISTRIBUTION WIDTH 16.4 % (11.5-14.5); RED BLOOD CELL CT 4.49 /CUMM (4.70-6.10); WHITE BLOOD CELL COUNT 11.1 /CUMM (4.8-10.8)
--- NOTE | 2017-08-30 10:48 | ED GENERAL ADULT ---
History of Present Illness General Chief Complaint: Dyspnea (COPD, CHF, Other) Stated Complaint: LOW O2/SOB/WEAKNESS Source: patient, family, old records Exam Limitations: no limitations Vital Signs & Intake/Output Vital Signs & Intake/Output Vital Signs Date Time Temp Pulse Resp B/P B/P Pulse O2 O2 Flow FiO2 Mean Ox Delivery Rate 08/30 1203 Room Air Room Air 08/30 1159 82 18 100/67 96 Room Air Room Air 08/30 1033 97 Room Air Room Air 08/30 1022 98.6 101 18 81/44 95 Room Air Allergies Coded Allergies: NO KNOWN ALLERGIES (02/03/14) Reconcile Medications Cholecalciferol (Vitamin D3) 1,000 UNIT TABLET 1,000 IU PO DAILY SUPPLEMENT . Tamsulosin HCl (Flomax) 0.4 MG CAP.ER.24H 0.4 MG PO DAILY BPH . Triage Note: 61 YO MALE TO TRIAGE FOR EVAL OF SOB AND WEAKNESS. PTS SISTER HERE WITH PT. PER PTS SISTER, PT HAD A PROCEDURE ON SATURDAY HERE TO OPEN HIS ESOPHAGUS BY DR PHAN. REPORTS HE IS UNABLE TO KEEP ANYTHING DOWN SINCE YESTERDAY. DENIES ANY PAIN. RA SATS 95%. BP 81/44 Triage Nurses Notes Reviewed? yes HPI: Patient presents with increasing weakness fatigue frequent falls anorexia shortness of breath productive cough and vomiting. Patient was recently admitted for the same. Patient states that the symptoms have continued to worsen. On Saturday he had an esophageal dilation which he said helped to bleed for approximately today but then the symptoms all came back. Patient states that he just feels that he cannot breathe and that vomiting will help him to breathe so he makes himself vomit. Patient was very weak and fell on Saturday and hit his head. There is no loss of consciousness. Patient fell again yesterday, stating that he just felt very weak and his legs just give out. He denies hitting his head yesterday. Past History Travel History Traveled to [place] past 21 day No Medical History Any Pertinent Medical History? see below for history Neurological: NONE EENT: NONE Cardiovascular: NONE Respiratory: LUNG NODULES PER PT Gastrointestinal: ESOPHAGEAL STRICTER Hepatic: NONE Renal: NONE Musculoskeletal: NONE Psychiatric: NONE (Denies) Endocrine: NONE Blood Disorders: NONE Cancer(s): NONE TRAFFIC LAW ATTORNEY/Reproductive: NONE History of MRSA: No History of VRE: No History of CDIFF: No Influenza Vaccine: 01/29/08 Surgical History Surgical History: non-contributory, SPLENECTOMY Psychosocial History Who do you live with Family Services at Home None What is your primary language German Tobacco Use: Never used ETOH Use: denies use Illicit Drug Use: denies illicit drug use Family History Hx Contributory? No Review of Systems Review of Systems Constitutional: Reports: see HPI, unexplained weight loss. EENTM: Reports: no symptoms. Respiratory: Reports: see HPI, cough, short of breath, sputum production. Cardiovascular: Reports: no symptoms. GI: Reports: no symptoms. Genitourinary: Reports: no symptoms. Musculoskeletal: Reports: no symptoms. Skin: Reports: no symptoms. Neurological/Psychological: Reports: no symptoms. Hematologic/Endocrine: Reports: no symptoms. Immunologic/Allergic: Reports: no symptoms. All Other Systems: Reviewed and Negative Physical Exam Physical Exam General Appearance: well developed/nourished, alert, awake Head: atraumatic, normal appearance Eyes: Bilateral: PERRL, EOMI. Ears, Nose, Throat: normal pharynx, normal ENT inspection Neck: normal inspection, full range of motion Respiratory: normal breath sounds, chest non-tender, no respiratory distress, lungs clear Cardiovascular: regular rate/rhythm, normal peripheral pulses Gastrointestinal: normal bowel sounds, soft, non-tender Back: normal inspection, normal range of motion Core Measures ACS in differential dx? No CVA/TIA Diagnosis: No Sepsis Present: No Sepsis Focused Exam Completed? No Progress Differential Diagnoses I considered the following diagnoses in my evaluation of the patient: [ Dehydration, electrolyte abnormality] Plan of Care: Orders Procedure Date/time Status Full Liquid Diet 08/30 D Active PT Evaluate & Treat 08/30 1157 Active TROPONIN LEVEL 08/30 1027 Complete COMPREHENSIVE METABOLIC PANEL 08/30 1027 Complete CBC WITHOUT DIFFERENTIAL 08/30 1027 Complete MOBILITY D/C STATUS 08/30 UNK Complete MOBILITY GOAL STATUS 08/30 UNK Complete MOBILITY CURRENT STATUS 08/30 UNK Complete Gait Training, 15 Min 08/30 UNK Complete PT EVAL LOW COMPLEX 20 MIN 08/30 UNK Complete Laboratory Tests 08/30/17 1028: Anion Gap 9, Estimated GFR > 60, BUN/Creatinine Ratio 18.3, Glucose 83, Calcium 8.9, Total Bilirubin 0.3, AST 30, ALT 35, Alkaline Phosphatase 78, Troponin I < 0.01, Total Protein 7.2, Albumin 3.4 L, Globulin 3.8, Albumin/Globulin Ratio 0.9 L, CBC w Diff NO MAN DIFF REQ, RBC 4.49 L, MCV 90.7, MCH 30.5, MCHC 33.6, RDW 16.4 H, MPV 7.3 L, Gran % 74.7, Lymphocytes % 5.4 L, Monocytes % 14.2 H, Eosinophils % 5.6 H, Basophils % 0.1, Absolute Granulocytes 8.3 H, Absolute Lymphocytes 0.6 L, Absolute Monocytes 1.6 H, Absolute Eosinophils 0.6, Absolute Basophils 0 Diagnostic Imaging: Viewed by Me: Radiology Read, CT Scan. Discussed w/RAD: Radiology Read, CT Scan. Radiology Impression: PATIENT: WERNER LERNER PRESENT AGE: 61 PATIENT ACCOUNT NO: [id number] : 56 LOCATION: [facility] ORDERING PHYSICIAN: Dean Mckoy MD SERVICE DATE: 08/30/17 EXAM TYPE: CAT - CT HEAD WO IV CONTRAST EXAMINATION: CT HEAD WITHOUT CONTRAST CLINICAL INFORMATION: Fall. Head injury. Weakness. COMPARISON: None. TECHNIQUE: Contiguous axial imaging was performed from the skull base to vertex without intravenous contrast. DLP: 620 mGy-cm. FINDINGS: There is no evidence of acute intracranial hemorrhage or territorial infarction. No abnormal mass effect or midline shift is seen. Chronic bilateral frontal lobe infarcts. Walden to white matter differentiation is otherwise well preserved. No extra-axial fluid collections are identified. No hydrocephalus. Proportional prominence of the ventricles and sulcal spaces is consistent with mild volume loss. There is no additional abnormal attenuation within the brain parenchyma. The osseous structures and soft tissues are normal. The mastoid air cells and visualized portions of the paranasal sinuses are well aerated. IMPRESSION: No acute intracranial pathology. Chronic bilateral frontal lobe infarcts. Mild global cerebral volume loss. DICTATED BY: John Vincent MD DATE/TIME DICTATED:1150 CAMERA REPAIRMAN:AYE DATE/TIME TRANSCRIBED:08/30/171150 CONFIDENTIAL, DO NOT COPY WITHOUT APPROPRIATE AUTHORIZATION. <Electronically signed in Other Vendor System> SIGNED BY: John Vincent MD 08/30/17 1206 CXR Impression: PATIENT: WERNER LERNER PRESENT AGE: 61 PATIENT ACCOUNT NO: [id number] : 56 LOCATION: [facility] ORDERING PHYSICIAN: Dean Mckoy MD SERVICE DATE: 08/30/17 EXAM TYPE: RAD - XRY-CHEST XRAY, TWO VIEWS EXAMINATION: XR CHEST CLINICAL INFORMATION: Shortness of breath and cough. COMPARISON: Chest radiograph 07/15/[address] dated 2017. TECHNIQUE: 2 views of the chest were obtained. FINDINGS: Since the previous studies there has been no interval change. Once again noted are bilateral upper lobe opacities with associated right and to a lesser extent left apical pleural thickening. No definite pleural effusions are seen. No pneumothorax is present. IMPRESSION: No significant interval change since the prior study with biapical opacities and upper lobe architectural distortion. No new superimposed consolidations are seen. DICTATED BY: Gil Ritter MD DATE/ TIME DICTATED:08/30/171120 CAMERA REPAIRMAN:AYE DATE/TIME TRANSCRIBED: 08/30/171120 CONFIDENTIAL, DO NOT COPY WITHOUT APPROPRIATE AUTHORIZATION. < Electronically signed in Other Vendor System> SIGNED BY: Gil Ritter MD 08/30/17 1131 Initial ED EKG: none Comments: Patient did eat this morning so unable to do the EGD. Patient was seen by physical therapy states that he is stable to go home with home physical therapy at [facility]. Based on his barium swallow I recommended to the patient and his sister that he follow-up with Dr. Phan and discussed the possibility of a PEG tube. Departure Departure Disposition: HOME OR SELF CARE Condition: Stable Clinical Impression Primary Impression: Weight loss Secondary Impressions: Esophageal dysmotility Referrals: Harleen Ny APRN (PCP/Family) Herbert Phan MD Additional Instructions: Follow-up with Dr. Phan. He might want to discuss with him about the possibility of a PEG tube and see what his recommendations are. Follow-up with home physical therapy and home [facility]. Departure Forms: Customer Survey General Discharge Information Critical Care Note Critical Care Note Critical Care Time: non-applicable
--- NOTE | 2017-08-30 11:36 | RADIOLOGY REPORT ---
EXAMINATION: XR CHEST CLINICAL INFORMATION: Shortness of breath and cough. COMPARISON: Chest radiograph 07/15/[address] dated 07/16/2017. TECHNIQUE: 2 views of the chest were obtained. FINDINGS: Since the previous studies there has been no interval change. Once again noted are bilateral upper lobe opacities with associated right and to a lesser extent left apical pleural thickening. No definite pleural effusions are seen. No pneumothorax is present. IMPRESSION: No significant interval change since the prior study with biapical opacities and upper lobe architectural distortion. No new superimposed consolidations are seen.
[2017-08-30 11:59] VITALS: BP 100/67
--- NOTE | 2017-08-30 12:06 | CT SCAN REPORT ---
EXAMINATION: CT HEAD WITHOUT CONTRAST CLINICAL INFORMATION: Fall. Head injury. Weakness. COMPARISON: None. TECHNIQUE: Contiguous axial imaging was performed from the skull base to vertex without intravenous contrast. DLP: 620 mGy-cm. FINDINGS: There is no evidence of acute intracranial hemorrhage or territorial infarction. No abnormal mass effect or midline shift is seen. Chronic bilateral frontal lobe infarcts. Walden to white matter differentiation is otherwise well preserved. No extra-axial fluid collections are identified. No hydrocephalus. Proportional prominence of the ventricles and sulcal spaces is consistent with mild volume loss. There is no additional abnormal attenuation within the brain parenchyma. The osseous structures and soft tissues are normal. The mastoid air cells and visualized portions of the paranasal sinuses are well aerated. IMPRESSION: No acute intracranial pathology. Chronic bilateral frontal lobe infarcts. Mild global cerebral volume loss.
== END 2017-08-30 15:46 ==
LOC: ERH 10:16
PROVIDERS: Emergency Medicine
DX: R63.4 Abnormal weight loss (principal); K22.4 Dyskinesia of esophagus; R05 Cough; R06.02 Shortness of breath; R11.10 Vomiting, unspecified
CPT/HCPCS: 71046; 96360; 96361; 97116-GP; 97161-GP; G8978-GP; G8979-GP; G8980-GP